=== PATIENT | female | born 1970 | race Asian ===

== ENCOUNTER 2019-05-23 12:35 | Inpatient (IN) | payer OTHER ==
[~2019-05-23] VITALS: Ht 157.5 cm; Wt 53.7 kg
[~2019-05-23 12:35] MED LIST: ASPI-1198 PO; FERR240T6 PO; INSU100C3 SQ; OLAN20TA2 PO; OMEP20 PO; PARO20TA24 PO; SIMV-260 PO; ZOLP10TA7 PO
[2019-05-23 12:54] LABS: GLUCOSE,POINT OF CARE > 600 MG/DL (70-110)
[2019-05-23] MEDS ORDERED: ROSU20TA23 PO (12:58)
[2019-05-23] MEDS ORDERED: LISI-662 PO (12:58)
[2019-05-23] MEDS ORDERED: INSLAN SQ (12:58)
[2019-05-23] MEDS ORDERED: OLAN10TA3 PO (12:58)
[2019-05-23] MEDS ORDERED: SPIR25 PO (12:58)
[2019-05-23] MEDS ORDERED: CALC30CA PO (12:58)
[2019-05-23] MEDS ORDERED: FERR-89 PO (12:58)
[2019-05-23] MEDS ORDERED: ACET-66 PO (12:58)
[2019-05-23] MEDS ORDERED: PATI8.4P PO (12:58)
[2019-05-23] MEDS ORDERED: DULA1.5P SQ (12:58)
[2019-05-23] MEDS ORDERED: MULT-1203 PO (12:58)
[2019-05-23] MEDS ORDERED: BIOT10TA2 PO (12:58)
[2019-05-23] MEDS ORDERED: METO25XL PO (12:58)
[2019-05-23] MEDS ORDERED: LANTANOPROST OU (12:58)
[2019-05-23] MEDS ORDERED: [UNRECOGNIZED DRUG - CODE] SQ (12:58)
[2019-05-23 13:24] LABS: BASOPHILS % (AUTO) 0.2 % (0.0-2.0); EOSINOPHILS % (AUTO) 0.7 % (1.0-6.0); HEMATOCRIT 29.7 % (36-46); HEMOGLOBIN 9.5 g/dL (12.0-16.0); LYMPHOCYTES # (AUTO) 0.6 K/uL (1.0-4.8); LYMPHOCYTES % (AUTO) 7.5 % (22.0-44.0); MEAN CORPUSCULAR HEMOGLOBIN 27.9 pg (26.0-34.0); MEAN CORPUSCULAR VOLUME 87 fL (80-100); MONOCYTES # (AUTO) 0.4 K/uL (0.1-1.0); MONOCYTES % (AUTO) 5.4 % (2.0-9.0); NEUTROPHILS # (AUTO) 6.8 K/uL (1.8-7.7); NEUTROPHILS % (AUTO) 86.2 % (40.0-70.0); PLATELET COUNT (AUTO) 653 K/uL (150-450); RED BLOOD CELL COUNT(AUTO) 3.41 MIL/uL (4.00-5.20); RED CELL DISTRIBUTION WIDTH 15.4 % (11.5-14.5)
[2019-05-23 13:39] LABS: ALANINE AMINOTRANSFERASE 21 U/L (12-78); ALBUMIN 2.8 g/dL (3.4-5.0); ALKALINE PHOSPHATASE 135 U/L (46-116); ANION GAP 12 mmol/L (8-16); ASPARTATE AMINOTRANSFERASE 14 U/L (15-37); BILIRUBIN,TOTAL 0.2 mg/dL (0.1-1.0); CALCIUM, TOTAL 8.8 mg/dL (8.8-10.5); CARBON DIOXIDE 19 mmol/L (22-29); CHLORIDE 86 mmol/L (98-107); CREATININE 2.84 mg/dL (0.60-1.30); GLOMERULAR FILTR. RATE CALC 18 mL/min (>60); POTASSIUM 4.1 mmol/L (3.5-5.1); TOTAL PROTEIN, SERUM 7.4 g/dL (6.4-8.2); UREA NITROGEN, BLOOD 36 mg/dL (7-18)
[2019-05-23 13:52] LABS: ACETAMINOPHEN < 2 mcg/mL (10-30); GLUCOSE,RANDOM 800 mg/dL (70-110); SODIUM SERUM 117 mmol/L (136-145)
[2019-05-23 14:01] LABS: SALICYLATE < 2.8 mg/dL (2.8-20.0)
[2019-05-23] MEDS ORDERED: SODIUM CHLORIDE 0.9% 1,000 ML IV ONE (14:30)
[2019-05-23] MEDS ORDERED: INSULIN LISPRO 100 UNITS/ML SQ ONE (14:30)
[2019-05-23] MEDS ORDERED: INSU300I SQ (14:37)
[2019-05-23 14:50] LABS: ACETONE,BLOOD TRACE (NEGATIVE)
[2019-05-23 15:22] LABS: OSMOLALITY 309 mOS/kg (270-310)
[2019-05-23 15:31] LABS: ABG A-A DIFF O2 25.4 mmHg (10-20.0); ABG BASE EXCESS -7.5 mmol/L (-2.0-3.0); ABG CARBOXYHEMOGLOBIN 0.3 % (0.0-1.5); ABG HCO3 19.1 mmol/L (22.0-26.0); ABG METHEMOGLOBIN 0.3 % (0.0-1.5); ABG OXYGEN CONTENT 12.1 mL/dL (15.0-23.0); ABG OXYGEN SATURATION 96.7 % (95.0-98.0); ABG OXYHEMOGLOBIN 96.1 % (94.0-100.0); ABG PCO2 25 mmHg (35-45); ABG PH 7.437 (7.35-7.450); ABG TOTAL HEMOGLOBIN 8.8 G/dL (12.0-18.0); O2 DEVICE,BLOOD GAS ROOM AIR (ROOM AIR); PO2, ARTERIAL BG 94.1 mmHg (88.0-96.0); SITE, BLOOD GAS RT RADIAL; SOURCE, BLOOD GAS ARTERIAL; TEMPERATURE, FAHRENHEIT, BG 98.5 FAHREN (96.0-98.6)
[2019-05-23 15:55] LABS: GLUCOSE,POINT OF CARE 575 MG/DL (70-110)
[2019-05-23] MEDS ORDERED: ACETAMINOPHEN 325 MG TABLET PO PRN (16:00)
[2019-05-23] MEDS ORDERED: 0.9% SODIUM CHLORIDE 10 ML SYRINGE IVP PRN (16:00)
[2019-05-23] MEDS ORDERED: ONDANSETRON HCL 4 MG/2 ML VIAL IVP PRN ×2 (16:00→22:45)
[2019-05-23 16:31] LABS: AMPHET/METH SCREEN,URINE NEGATIVE (NEGATIVE); BARBITURATE SCREEN, URINE NEGATIVE (NEGATIVE); BENZODIAZEPINES SCREEN,URINE NEGATIVE (NEGATIVE); CANNABINOID SCREEN,URINE NEGATIVE (NEGATIVE); COCAINE SCREEN,URINE NEGATIVE (NEGATIVE); METHADONE SCREEN, URINE NEGATIVE (NEGATIVE); OPIATE SCREEN,URINE NEGATIVE (NEGATIVE)
[2019-05-23 16:32] LABS: PHENCYCLIDINE SCREEN,URINE NEGATIVE (NEGATIVE)
[2019-05-23 18:51] LABS: GLUCOSE,POINT OF CARE 241 MG/DL (70-110)
[2019-05-23 20:30] VITALS: BP 115/78
[2019-05-23] MEDS ORDERED: DEXTROSE 50%-WATER 25 GM/50 ML SYRINGE IVP PRN (21:15)
[2019-05-23] MEDS: PARoxetine HCL 20 MG TABLET PO SCH (21:53)
[2019-05-23] MEDS: LATANOPROST 0.005% 2.5 ML OPHTHALMIC SOLUTION OU SCH (21:54)
[2019-05-23] MEDS: INSULIN GLARGINE,HUM.REC.ANLOG 100 UNITS/ML SQ SCH (21:54)
[2019-05-23] MEDS: OLANZapine 10 MG TABLET PO SCH (21:54)
[2019-05-23] MEDS: INSULIN LISPRO 100 UNITS/ML SQ PRN (21:55)
[2019-05-23] MEDS ORDERED: BISACODYL 10 MG RECTAL RECTAL SUPPOSITORY PR PRN (22:45)
[2019-05-23] MEDS ORDERED: ALBUTEROL SULFATE 2.5 MG/0.5 ML NEB SOLUTION NEB PRN (22:45)
[2019-05-23] MEDS ORDERED: HYDROCODONE/ACETAMINOPHEN 5-325 MG TABLET PO PRN (22:45)
[2019-05-23] MEDS ORDERED: IPRATROPIUM BROMIDE 0.5 MG/2.5 ML NEB SOLUTION NEB PRN (22:45)
[2019-05-23] MEDS ORDERED: MAGNESIUM HYDROXIDE SUSPENSION 30 ML UDCUP PO PRN (22:45)
[2019-05-23] MEDS ORDERED: MORPHINE SULFATE 2 MG/ML SYRINGE IVP PRN (22:45)
[2019-05-23] MEDS: HEPARIN SODIUM,PORCINE 5,000 UNITS/ML VIAL SQ SCH (23:21)
[2019-05-23 23:28] VITALS: BP 132/88
[2019-05-23 23:40] LABS: GLUCOMETER DEV NAME(LOC) 6N.2; GLUCOSE,POINT OF CARE 203 MG/DL (70-110)
[2019-05-23] MEDS ORDERED: INFLUENZA VIRUS VACCINE QVS 2019-20 (3YR+)/PF 60 MCG/0.5 ML SYRINGE IM ONE (23:45)
[2019-05-23] MEDS: ACETAMINOPHEN 325 MG TABLET PO PRN (23:55)
[2019-05-24] MEDS: ZOLPIDEM TARTRATE 5 MG TABLET PO PRN ×2 (02:20→23:30)
[2019-05-24 05:02] VITALS: BP 149/94
[2019-05-24 06:21] LABS: GLUCOMETER DEV NAME(LOC) 4E.2; GLUCOSE,POINT OF CARE 331 MG/DL (70-110)
[2019-05-24] MEDS ORDERED: INSULIN LISPRO 100 UNITS/ML SQ SCH (06:30)
[2019-05-24 07:55] VITALS: BP 133/87
[2019-05-24] MEDS: METOPROLOL SUCCINATE 25 MG ER TABLET PO SCH (08:02)
[2019-05-24] MEDS: MULTIVITAMINS, THERAPEUTIC TABLET PO SCH (08:02)
[2019-05-24] MEDS: ROSUVASTATIN CALCIUM 20 MG TABLET PO SCH (08:02)
[2019-05-24] MEDS: BIOTIN 5 MG CAPSULE PO SCH (08:02)
[2019-05-24] MEDS: DOCUSATE SODIUM 100 MG CAPSULE PO SCH ×2 (08:02→20:09)
[2019-05-24] MEDS: HEPARIN SODIUM,PORCINE 5,000 UNITS/ML VIAL SQ SCH ×3 (08:03→23:25)
[2019-05-24] MEDS: FERROUS SULFATE 325 MG EC TABLET PO SCH (08:19)
[2019-05-24] MEDS ORDERED: OLANZapine 10 MG TABLET PO SCH (09:00)
[2019-05-24] MEDS ORDERED: CALCIFEDIOL 30 MCG PO SCH (09:00)
[2019-05-24] MEDS ORDERED: LISINOPRIL 20 MG TABLET PO SCH (09:00)
[2019-05-24] MEDS ORDERED: PATIROMER CALCIUM SORBITEX 8.4 GM PO SCH (09:00)
[2019-05-24] MEDS ORDERED: PARoxetine HCL 20 MG TABLET PO SCH (09:00)
[2019-05-24] MEDS ORDERED: SPIRONOLACTONE 25 MG TABLET PO SCH (09:00)
[2019-05-24 10:12] LABS: EOSINOPHILS % (AUTO) 1.1 % (1.0-6.0); HEMATOCRIT 25.9 % (36-46); LYMPHOCYTES # (AUTO) 0.6 K/uL (1.0-4.8); LYMPHOCYTES % (AUTO) 6.9 % (22.0-44.0); MEAN CORPUSCULAR HEMOGLOBIN 29.3 pg (26.0-34.0); MEAN CORPUSCULAR HGB CONC 34.8 G/dL (31.0-37.0); MEAN CORPUSCULAR VOLUME 84 fL (80-100); MONOCYTES # (AUTO) 0.4 K/uL (0.1-1.0); MONOCYTES % (AUTO) 5.4 % (2.0-9.0); NEUTROPHILS # (AUTO) 6.9 K/uL (1.8-7.7); NEUTROPHILS % (AUTO) 86.6 % (40.0-70.0); PLATELET COUNT (AUTO) 559 K/uL (150-450); RED BLOOD CELL COUNT(AUTO) 3.08 MIL/uL (4.00-5.20); RED CELL DISTRIBUTION WIDTH 16.1 % (11.5-14.5)
[2019-05-24 10:22] LABS: POTASSIUM 3.6 mmol/L (3.5-5.1)
[2019-05-24 10:23] LABS: CREATININE 2.11 mg/dL (0.60-1.30)
[2019-05-24 10:28] LABS: ALBUMIN 2.4 g/dL (3.4-5.0); BILIRUBIN,TOTAL 0.1 mg/dL (0.1-1.0); TOTAL PROTEIN, SERUM 6.3 g/dL (6.4-8.2)
[2019-05-24 11:34] VITALS: BP 100/62
[2019-05-24] MEDS ORDERED: DEXTROSE 5%-WATER 1,000 ML IV SCH (11:45)
[2019-05-24] MEDS ORDERED: INSU100V SQ (11:54)
[2019-05-24] MEDS ORDERED: XALA2.5OS OU (11:54)
[2019-05-24] MEDS: INSULIN LISPRO 100 UNITS/ML SQ SCH ×2 (12:44→17:00)
[2019-05-24 12:51] LABS: GLUCOMETER DEV NAME(LOC) 4E.2; GLUCOSE,POINT OF CARE 105 MG/DL (70-110)
[2019-05-24 15:18] LABS: APPEARANCE,URINE TURBID (CLEAR); BILIRUBIN,URINE NEGATIVE (NEGATIVE); GLUCOSE, URINE (UA) 500 mg/dL (NEGATIVE); KETONES,URINE NEGATIVE (NEGATIVE); LEUKOCYTE ESTERASE ,URINE MODERATE (NEGATIVE); NITRATE,URINE NEGATIVE (NEGATIVE); OCCULT BLOOD,URINE MODERATE (NEGATIVE); PROTEIN,URINE SEE CONFIRM (NEGATIVE); UROBILINOGEN,URINE 0.2 mg/dL (<=1.0)
[2019-05-24 15:38] VITALS: BP 99/68
[2019-05-24 15:38] LABS: BACTERIA,URINE Many /HPF (None Seen); SULFOSALICYLIC ACID,URINE 4+ (Negative)
[2019-05-24 15:39] LABS: WBC,URINE 51-100 /HPF (0-5)
[2019-05-24 15:40] LABS: SQUAMOUS EPITHELIAL CELL,UR Many /LPF (None Seen)
[2019-05-24 15:41] LABS: YEAST,URINE Rare /HPF (None Seen)
[2019-05-24 15:59] LABS: OSMOLALITY,URINE 182 mOS/kg (50-1200)
[2019-05-24 16:06] LABS: CREATININE,URINE RANDOM 34.3 mg/dL (30.0-125.0); SODIUM,URINE RANDOM 16 mmol/l (20-110); UREA NITROGEN,URINE RANDOM 193 mg/dL (350-1000)
[2019-05-24 19:09] LABS: GLUCOMETER DEV NAME(LOC) 6N.2; GLUCOSE,POINT OF CARE 106 MG/DL (70-110)
[2019-05-24 19:09] LABS: GLUCOMETER DEV NAME(LOC) 6N.2; GLUCOSE,POINT OF CARE 217 MG/DL (70-110)
[2019-05-24 20:00] VITALS: BP 115/73
[2019-05-24] MEDS: LATANOPROST 0.005% 2.5 ML OPHTHALMIC SOLUTION OU SCH (20:09)
[2019-05-24] MEDS: OLANZapine 10 MG TABLET PO SCH (20:09)
[2019-05-24] MEDS: PARoxetine HCL 20 MG TABLET PO SCH (20:09)
[2019-05-24] MEDS: INSULIN LISPRO 100 UNITS/ML SQ PRN (20:43)
[2019-05-24] MEDS: INSULIN GLARGINE,HUM.REC.ANLOG 100 UNITS/ML SQ SCH (20:44)
[2019-05-24 21:24] LABS: GLUCOMETER DEV NAME(LOC) 4E.2; GLUCOSE,POINT OF CARE 310 MG/DL (70-110)
[2019-05-24 22:22] LABS: APPEARANCE,URINE CLOUDY (CLEAR); BILIRUBIN,URINE NEGATIVE (NEGATIVE); GLUCOSE, URINE (UA) 250 mg/dL (NEGATIVE); KETONES,URINE NEGATIVE (NEGATIVE); LEUKOCYTE ESTERASE ,URINE MODERATE (NEGATIVE); NITRATE,URINE NEGATIVE (NEGATIVE); OCCULT BLOOD,URINE MODERATE (NEGATIVE); PROTEIN,URINE SEE CONFIRM (NEGATIVE); UROBILINOGEN,URINE 0.2 mg/dL (<=1.0)
[2019-05-24 22:44] LABS: BACTERIA,URINE Many /HPF (None Seen); RBC,URINE 0-2 /HPF (0-2)
[2019-05-24 22:45] LABS: SQUAMOUS EPITHELIAL CELL,UR Many /LPF (None Seen); WBC,URINE 51-100 /HPF (0-5); YEAST,URINE Rare /HPF (None Seen)
[2019-05-25 00:43] VITALS: BP 149/94
[2019-05-25 04:30] VITALS: BP 134/82
[2019-05-25 05:45] LABS: BASOPHILS % (AUTO) 0.3 % (0.0-2.0); HEMOGLOBIN 8.2 g/dL (12.0-16.0); LYMPHOCYTES # (AUTO) 0.8 K/uL (1.0-4.8); LYMPHOCYTES % (AUTO) 11.7 % (22.0-44.0); MEAN CORPUSCULAR HEMOGLOBIN 28.9 pg (26.0-34.0); MEAN CORPUSCULAR VOLUME 85 fL (80-100); MONOCYTES # (AUTO) 0.5 K/uL (0.1-1.0); MONOCYTES % (AUTO) 7.1 % (2.0-9.0); NEUTROPHILS # (AUTO) 5.4 K/uL (1.8-7.7); NEUTROPHILS % (AUTO) 78.9 % (40.0-70.0); PLATELET COUNT (AUTO) 470 K/uL (150-450); RED BLOOD CELL COUNT(AUTO) 2.83 MIL/uL (4.00-5.20); RED CELL DISTRIBUTION WIDTH 16.5 % (11.5-14.5)
[2019-05-25] MEDS: INSULIN LISPRO 100 UNITS/ML SQ SCH ×3 (06:27→17:42)
[2019-05-25 06:30] LABS: GLUCOMETER DEV NAME(LOC) 6N.2; GLUCOSE,POINT OF CARE 149 MG/DL (70-110)
[2019-05-25 06:33] LABS: BILIRUBIN,TOTAL 0.1 mg/dL (0.1-1.0); CALCIUM, TOTAL 8.2 mg/dL (8.8-10.5); MAGNESIUM 2.1 mg/dL (1.80-2.40); PHOSPHORUS 3.6 mg/dL (2.5-4.9); POTASSIUM 3.2 mmol/L (3.5-5.1); TOTAL PROTEIN, SERUM 5.6 g/dL (6.4-8.2)
[2019-05-25 06:35] LABS: HEMOGLOBIN A1C 11.5 % (4.5-6.2)
[2019-05-25] MEDS ORDERED: SODIUM CHLORIDE 0.9% 1,000 ML IV SCH (08:16)
[2019-05-25] MEDS: HEPARIN SODIUM,PORCINE 5,000 UNITS/ML VIAL SQ SCH ×2 (08:26→16:24)
[2019-05-25] MEDS: ROSUVASTATIN CALCIUM 20 MG TABLET PO SCH (08:26)
[2019-05-25] MEDS: DOCUSATE SODIUM 100 MG CAPSULE PO SCH ×2 (08:26→20:09)
[2019-05-25] MEDS: BIOTIN 5 MG CAPSULE PO SCH (08:26)
[2019-05-25] MEDS: MULTIVITAMINS, THERAPEUTIC TABLET PO SCH (08:27)
[2019-05-25] MEDS: FERROUS SULFATE 325 MG EC TABLET PO SCH (08:27)
[2019-05-25] MEDS ORDERED: POTASSIUM CHLORIDE 10 MEQ ER TABLET PO ONE (08:30)
[2019-05-25] MEDS: METOPROLOL SUCCINATE 25 MG ER TABLET PO SCH (09:00)
[2019-05-25 09:43] VITALS: BP 104/75
[2019-05-25] MEDS: INSULIN LISPRO 100 UNITS/ML SQ PRN (11:52)
[2019-05-25 12:21] VITALS: BP 101/64
[2019-05-25 16:30] VITALS: BP 118/75
[2019-05-25 17:47] LABS: GLUCOMETER DEV NAME(LOC) 4E.2; GLUCOSE,POINT OF CARE 120 MG/DL (70-110)
[2019-05-25] MEDS: LATANOPROST 0.005% 2.5 ML OPHTHALMIC SOLUTION OU SCH (20:07)
[2019-05-25] MEDS: PARoxetine HCL 20 MG TABLET PO SCH (20:09)
[2019-05-25] MEDS: OLANZapine 10 MG TABLET PO SCH (20:10)
[2019-05-25] MEDS: INSULIN GLARGINE,HUM.REC.ANLOG 100 UNITS/ML SQ SCH (20:16)
[2019-05-25 20:34] VITALS: BP 121/75
[2019-05-25 21:18] LABS: GLUCOMETER DEV NAME(LOC) 6N.2; GLUCOSE,POINT OF CARE 99 MG/DL (70-110)
[2019-05-26] MEDS: HEPARIN SODIUM,PORCINE 5,000 UNITS/ML VIAL SQ SCH ×3 (02:17→15:16)
[2019-05-26] MEDS: ACETAMINOPHEN 325 MG TABLET PO PRN (03:13)
[2019-05-26] MEDS: ZOLPIDEM TARTRATE 5 MG TABLET PO PRN ×2 (03:25→20:41)
[2019-05-26 04:00] VITALS: BP 123/77
[2019-05-26] MEDS: INSULIN LISPRO 100 UNITS/ML SQ PRN ×2 (06:27→17:48)
[2019-05-26 06:36] LABS: BASOPHILS % (AUTO) 0.2 % (0.0-2.0); EOSINOPHILS % (AUTO) 1.1 % (1.0-6.0); HEMATOCRIT 25.3 % (36-46); HEMOGLOBIN 8.4 g/dL (12.0-16.0); LYMPHOCYTES # (AUTO) 0.6 K/uL (1.0-4.8); LYMPHOCYTES % (AUTO) 9.3 % (22.0-44.0); MEAN CORPUSCULAR HEMOGLOBIN 28.4 pg (26.0-34.0); MEAN CORPUSCULAR VOLUME 86 fL (80-100); MONOCYTES # (AUTO) 0.4 K/uL (0.1-1.0); MONOCYTES % (AUTO) 6.6 % (2.0-9.0); NEUTROPHILS # (AUTO) 5.6 K/uL (1.8-7.7); NEUTROPHILS % (AUTO) 82.8 % (40.0-70.0); PLATELET COUNT (AUTO) 417 K/uL (150-450); RED BLOOD CELL COUNT(AUTO) 2.95 MIL/uL (4.00-5.20); RED CELL DISTRIBUTION WIDTH 16.3 % (11.5-14.5)
[2019-05-26 06:57] LABS: ALBUMIN 2.1 g/dL (3.4-5.0); BILIRUBIN,TOTAL 0.1 mg/dL (0.1-1.0); CREATININE 1.95 mg/dL (0.60-1.30); MAGNESIUM 1.9 mg/dL (1.80-2.40); TOTAL PROTEIN, SERUM 5.6 g/dL (6.4-8.2)
[2019-05-26 08:00] VITALS: BP 104/69
[2019-05-26] MEDS: INSULIN LISPRO 100 UNITS/ML SQ SCH ×3 (08:52→17:47)
[2019-05-26] MEDS: BIOTIN 5 MG CAPSULE PO SCH (08:55)
[2019-05-26] MEDS: SODIUM CHLORIDE 1 GM TABLET PO SCH ×3 (08:55→18:06)
[2019-05-26] MEDS: FERROUS SULFATE 325 MG EC TABLET PO SCH (08:55)
[2019-05-26] MEDS: ROSUVASTATIN CALCIUM 20 MG TABLET PO SCH (08:55)
[2019-05-26] MEDS: DOCUSATE SODIUM 100 MG CAPSULE PO SCH ×2 (08:55→20:38)
[2019-05-26] MEDS: MULTIVITAMINS, THERAPEUTIC TABLET PO SCH (08:55)
[2019-05-26] MEDS: METOPROLOL SUCCINATE 25 MG ER TABLET PO SCH (09:00)
[2019-05-26 11:40] VITALS: BP 137/80
[2019-05-26 11:47] LABS: GLUCOMETER DEV NAME(LOC) 6N.2; GLUCOSE,POINT OF CARE 55 MG/DL (70-110)
[2019-05-26 12:00] LABS: GLUCOMETER DEV NAME(LOC) 6N.2; GLUCOSE,POINT OF CARE 196 MG/DL (70-110)
[2019-05-26 16:30] VITALS: BP 127/83
[2019-05-26 17:17] LABS: GLUCOMETER DEV NAME(LOC) 4E.2; GLUCOSE,POINT OF CARE 92 MG/DL (70-110)
[2019-05-26 17:18] LABS: GLUCOMETER DEV NAME(LOC) 4E.2; GLUCOSE,POINT OF CARE 124 MG/DL (70-110)
[2019-05-26 18:03] LABS: CALCIUM, TOTAL 8.5 mg/dL (8.8-10.5); CREATININE 1.88 mg/dL (0.60-1.30); POTASSIUM 4.6 mmol/L (3.5-5.1)
[2019-05-26 20:35] VITALS: BP 122/79
[2019-05-26] MEDS: LATANOPROST 0.005% 2.5 ML OPHTHALMIC SOLUTION OU SCH (20:38)
[2019-05-26] MEDS: INSULIN GLARGINE,HUM.REC.ANLOG 100 UNITS/ML SQ SCH (20:46)
[2019-05-26] MEDS ORDERED: OLANZapine 10 MG TABLET PO SCH (21:00)
[2019-05-26] MEDS ORDERED: PARoxetine HCL 20 MG TABLET PO SCH (21:00)
[2019-05-26] MEDS ORDERED: PARoxetine HCL 10 MG TABLET PO SCH (21:00)
[2019-05-26] MEDS: LamoTRIgine 25 MG TABLET PO SCH (21:42)
[2019-05-26 23:07] LABS: GLUCOMETER DEV NAME(LOC) 6N.2; GLUCOSE,POINT OF CARE 98 MG/DL (70-110)
[2019-05-26 23:07] LABS: GLUCOMETER DEV NAME(LOC) 6N.2; GLUCOSE,POINT OF CARE 195 MG/DL (70-110)
[2019-05-27 00:16] VITALS: BP 117/70
[2019-05-27] MEDS: HEPARIN SODIUM,PORCINE 5,000 UNITS/ML VIAL SQ SCH ×2 (00:19→09:01)
[2019-05-27] MEDS: SODIUM CHLORIDE 1 GM TABLET PO SCH ×3 (00:19→12:13)
[2019-05-27 05:47] VITALS: BP 108/68
[2019-05-27] MEDS: INSULIN LISPRO 100 UNITS/ML SQ PRN (05:56)
[2019-05-27 06:32] LABS: GLUCOMETER DEV NAME(LOC) 6N.2; GLUCOSE,POINT OF CARE 149 MG/DL (70-110)
[2019-05-27 06:43] LABS: BASOPHILS % (AUTO) 0.3 % (0.0-2.0); EOSINOPHILS % (AUTO) 1.5 % (1.0-6.0); HEMATOCRIT 26.4 % (36-46); HEMOGLOBIN 8.9 g/dL (12.0-16.0); LYMPHOCYTES # (AUTO) 0.6 K/uL (1.0-4.8); LYMPHOCYTES % (AUTO) 9.3 % (22.0-44.0); MEAN CORPUSCULAR HEMOGLOBIN 29.1 pg (26.0-34.0); MEAN CORPUSCULAR HGB CONC 33.5 G/dL (31.0-37.0); MEAN CORPUSCULAR VOLUME 87 fL (80-100); MONOCYTES # (AUTO) 0.6 K/uL (0.1-1.0); MONOCYTES % (AUTO) 10.2 % (2.0-9.0); NEUTROPHILS # (AUTO) 4.7 K/uL (1.8-7.7); NEUTROPHILS % (AUTO) 78.7 % (40.0-70.0); PLATELET COUNT (AUTO) 455 K/uL (150-450); RED BLOOD CELL COUNT(AUTO) 3.05 MIL/uL (4.00-5.20); RED CELL DISTRIBUTION WIDTH 16.7 % (11.5-14.5)
[2019-05-27 07:07] LABS: ALBUMIN 2.4 g/dL (3.4-5.0); BILIRUBIN,TOTAL 0.2 mg/dL (0.1-1.0); CALCIUM, TOTAL 8.8 mg/dL (8.8-10.5); CREATININE 2.05 mg/dL (0.60-1.30); PHOSPHORUS 3.6 mg/dL (2.5-4.9); POTASSIUM 4.6 mmol/L (3.5-5.1); TOTAL PROTEIN, SERUM 6.2 g/dL (6.4-8.2)
[2019-05-27 08:20] VITALS: BP 135/59
[2019-05-27] MEDS: METOPROLOL SUCCINATE 25 MG ER TABLET PO SCH (09:00)
[2019-05-27] MEDS: BIOTIN 5 MG CAPSULE PO SCH (09:00)
[2019-05-27] MEDS: DOCUSATE SODIUM 100 MG CAPSULE PO SCH (09:01)
[2019-05-27] MEDS: LamoTRIgine 25 MG TABLET PO SCH (09:01)
[2019-05-27] MEDS: MULTIVITAMINS, THERAPEUTIC TABLET PO SCH (09:01)
[2019-05-27] MEDS: ROSUVASTATIN CALCIUM 20 MG TABLET PO SCH (09:01)
[2019-05-27] MEDS: FERROUS SULFATE 325 MG EC TABLET PO SCH (09:01)
[2019-05-27] MEDS: INSULIN LISPRO 100 UNITS/ML SQ SCH ×2 (09:02→11:30)
[2019-05-27 11:16] VITALS: BP 100/60
[2019-05-27] MEDS ORDERED: LAMO25TA25 PO (11:28)
[2019-05-27] MEDS ORDERED: NACL1 PO (11:29)
[2019-05-27 18:44] LABS: GLUCOMETER DEV NAME(LOC) 4E.2; GLUCOSE,POINT OF CARE 89 MG/DL (70-110)
[2019-05-27] MEDS ORDERED: PARoxetine HCL 10 MG TABLET PO SCH (21:00)
== END 2019-05-27 13:30 | disposition home or self-care (01) | DRG 469 ==
LOC: EMS 12:36 → 4E 17:15
PROVIDERS: ADMIT Hospitalist; ATTEND Hospitalist
DX: N17.9 Acute kidney failure, unspecified (principal); E43 Unspecified severe protein-calorie malnutrition; E10.22 Type 1 diabetes mellitus with diabetic chronic kidney disease; E10.40 Type 1 diabetes mellitus with diabetic neuropathy, unspecified; E86.1 Hypovolemia; E87.1 Hypo-osmolality and hyponatremia; E10.319 Type 1 diabetes mellitus with unspecified diabetic retinopathy without macular edema; I50.9 Heart failure, unspecified; E10.65 Type 1 diabetes mellitus with hyperglycemia; R45.851 Suicidal ideations; E78.5 Hyperlipidemia, unspecified; N30.90 Cystitis, unspecified without hematuria; E87.6 Hypokalemia; D64.9 Anemia, unspecified; I13.0 Hypertensive heart and chronic kidney disease with heart failure and stage 1 through stage 4 chronic kidney disease, or unspecified chronic kidney disease; F31.5 Bipolar disorder, current episode depressed, severe, with psychotic features; N18.9 Chronic kidney disease, unspecified; E87.8 Other disorders of electrolyte and fluid balance, not elsewhere classified; Z79.4 Long term (current) use of insulin; Z79.899 Other long term (current) drug therapy; Z91.14 Patient's other noncompliance with medication regimen; Z91.5 Personal history of self-harm; Z68.21 Body mass index [BMI] 21.0-21.9, adult
CPT/HCPCS: 36600; 76770; 82533; 82570; 82805; 83036; 83735; 83930; 83935; 84100; 84295; 84300; 84540; 87086; 99291; G0378; G0480; G0481; J1644; J1815; J7030; J7060

== ENCOUNTER 2019-07-02 15:46 | Inpatient (IN) | payer OTHER ==
[~2019-07-02] VITALS: Ht 165.1 cm; Wt 53.4 kg
[~2019-07-02 15:46] MED LIST changes: -ASPI-1198 PO; +BIOT10TA2 PO; +FERR-89 PO; -FERR240T6 PO; -INSU100C3 SQ; +INSU100V SQ; +INSU300I SQ; +LAMO25TA25 PO; +METO25XL PO; +MULT-1203 PO; +NACL1 PO; +OLAN10TA3 PO; -OLAN20TA2 PO; -OMEP20 PO; +ROSU20TA23 PO; -SIMV-260 PO; +XALA2.5OS OU; -ZOLP10TA7 PO
[2019-07-02 16:29] LABS: GLUCOSE,POINT OF CARE > 600 MG/DL (70-110)
[2019-07-02] MEDS ORDERED: SODIUM CHLORIDE 0.9% 2,000 ML IV ONE (17:15)
[2019-07-02] MEDS ORDERED: INSULIN REGULAR, HUMAN 100 UNITS/ML IVP ONE ×2 (17:15→20:15)
[2019-07-02 17:33] LABS: BASOPHILS % (AUTO) 0.3 % (0.0-2.0); EOSINOPHILS % (AUTO) 0.3 % (1.0-6.0); HEMOGLOBIN 10.1 g/dL (12.0-16.0); LYMPHOCYTES # (AUTO) 0.3 K/uL (1.0-4.8); LYMPHOCYTES % (AUTO) 2.6 % (22.0-44.0); MEAN CORPUSCULAR HEMOGLOBIN 26.4 pg (26.0-34.0); MEAN CORPUSCULAR HGB CONC 30.5 G/dL (31.0-37.0); MEAN CORPUSCULAR VOLUME 86 fL (80-100); MONOCYTES # (AUTO) 0.4 K/uL (0.1-1.0); MONOCYTES % (AUTO) 3.5 % (2.0-9.0); NEUTROPHILS # (AUTO) 11.7 K/uL (1.8-7.7); PLATELET COUNT (AUTO) 508 K/uL (150-450); RED BLOOD CELL COUNT(AUTO) 3.82 MIL/uL (4.00-5.20); RED CELL DISTRIBUTION WIDTH 14.3 % (11.5-14.5)
[2019-07-02 17:35] LABS: NEUTROPHILS % (AUTO) 93.3 % (40.0-70.0)
[2019-07-02 17:53] LABS: ALANINE AMINOTRANSFERASE 19 U/L (12-78); ALBUMIN 1.6 g/dL (3.4-5.0); ALKALINE PHOSPHATASE 202 U/L (46-116); ANION GAP 11 mmol/L (8-16); ASPARTATE AMINOTRANSFERASE 19 U/L (15-37); CALCIUM, TOTAL 8.8 mg/dL (8.8-10.5); CARBON DIOXIDE 22 mmol/L (22-29); CHLORIDE 82 mmol/L (98-107); CREATININE 2.87 mg/dL (0.60-1.30); GLOMERULAR FILTR. RATE CALC 17 mL/min (>60); HCG,QUANTITATIVE < 1 mIU/mL (0-6); POTASSIUM 4.8 mmol/L (3.5-5.1); TOTAL PROTEIN, SERUM 7.2 g/dL (6.4-8.2); UREA NITROGEN, BLOOD 27 mg/dL (7-18)
[2019-07-02 18:02] LABS: SODIUM SERUM 115 mmol/L (136-145)
[2019-07-02 18:11] LABS: GLUCOSE,RANDOM 1066 mg/dL (70-110)
[2019-07-02 18:15] LABS: BILIRUBIN,TOTAL 0.1 mg/dL (0.1-1.0)
[2019-07-02] MEDS ORDERED: ACETAMINOPHEN 325 MG TABLET PO PRN ×2 (19:00→22:30)
[2019-07-02] MEDS ORDERED: 0.9% SODIUM CHLORIDE 10 ML SYRINGE IVP PRN (19:00)
[2019-07-02] MEDS ORDERED: ONDANSETRON HCL 4 MG/2 ML VIAL IVP PRN ×2 (19:00→22:30)
[2019-07-02 19:01] LABS: GLUCOSE,POINT OF CARE 530 MG/DL (70-110)
[2019-07-02 19:49] LABS: APPEARANCE,URINE TURBID (CLEAR); BILIRUBIN,URINE NEGATIVE (NEGATIVE); GLUCOSE, URINE (UA) >=1000 mg/dL (NEGATIVE); KETONES,URINE NEGATIVE (NEGATIVE); LEUKOCYTE ESTERASE ,URINE MODERATE (NEGATIVE); NITRATE,URINE NEGATIVE (NEGATIVE); OCCULT BLOOD,URINE MODERATE (NEGATIVE); PH,URINE 5.5 (5.0-8.0); PROTEIN,URINE SEE CONFIRM (NEGATIVE); UROBILINOGEN,URINE 0.2 mg/dL (<=1.0)
[2019-07-02 19:55] LABS: AMPHET/METH SCREEN,URINE NEGATIVE (NEGATIVE); BARBITURATE SCREEN, URINE NEGATIVE (NEGATIVE); BENZODIAZEPINES SCREEN,URINE NEGATIVE (NEGATIVE); CANNABINOID SCREEN,URINE NEGATIVE (NEGATIVE); COCAINE SCREEN,URINE NEGATIVE (NEGATIVE); METHADONE SCREEN, URINE NEGATIVE (NEGATIVE); OPIATE SCREEN,URINE NEGATIVE (NEGATIVE); PHENCYCLIDINE SCREEN,URINE NEGATIVE (NEGATIVE)
[2019-07-02 19:57] LABS: GLUCOSE,POINT OF CARE 418 MG/DL (70-110)
[2019-07-02 19:58] LABS: SULFOSALICYLIC ACID,URINE 4+ (Negative)
[2019-07-02 20:00] LABS: BACTERIA,URINE Many /HPF (None Seen); WBC,URINE >100 /HPF (0-5)
[2019-07-02 20:01] LABS: SQUAMOUS EPITHELIAL CELL,UR Moderate /LPF (None Seen)
[2019-07-02 22:23] LABS: GLUCOSE,POINT OF CARE 281 MG/DL (70-110)
[2019-07-02] MEDS ORDERED: MAGNESIUM HYDROXIDE SUSPENSION 30 ML UDCUP PO PRN (22:30)
[2019-07-02] MEDS ORDERED: ZOLPIDEM TARTRATE 5 MG TABLET PO PRN (22:30)
[2019-07-02] MEDS ORDERED: HYDROCODONE/ACETAMINOPHEN 5-325 MG TABLET PO PRN (22:30)
[2019-07-02] MEDS ORDERED: DEXTROSE 50%-WATER 25 GM/50 ML SYRINGE IVP PRN (22:30)
[2019-07-02] MEDS ORDERED: IPRATROPIUM BROMIDE 0.5 MG/2.5 ML NEB SOLUTION NEB PRN (22:30)
[2019-07-02] MEDS ORDERED: MORPHINE SULFATE 2 MG/ML SYRINGE IVP PRN (22:30)
[2019-07-02] MEDS ORDERED: SODIUM CHLORIDE 0.9% 1,650 ML IV ONE (22:30)
[2019-07-02] MEDS ORDERED: BISACODYL 10 MG RECTAL RECTAL SUPPOSITORY PR PRN (22:30)
[2019-07-02] MEDS ORDERED: ALBUTEROL SULFATE 2.5 MG/0.5 ML NEB SOLUTION NEB PRN (22:30)
[2019-07-02] MEDS: CefTRIAXone 1 GM/DEXTROSE 50 ML IV SCH (23:33)
[2019-07-02] MEDS: SODIUM CHLORIDE 0.9% 1,000 ML IV SCH (23:33)
[2019-07-02 23:54] LABS: CALCIUM, TOTAL 8.3 mg/dL (8.8-10.5); CREATININE 2.16 mg/dL (0.60-1.30); POTASSIUM 3.6 mmol/L (3.5-5.1)
[2019-07-03] LABS: ALBUMIN 1.4 g/dL (3.4-5.0); BILIRUBIN,TOTAL 0.1 mg/dL (0.1-1.0); MAGNESIUM 1.5 mg/dL (1.80-2.40); PHOSPHORUS 3.2 mg/dL (2.5-4.9); TOTAL PROTEIN, SERUM 5.9 g/dL (6.4-8.2)
[2019-07-03 06:25] LABS: GLUCOSE,POINT OF CARE 375 MG/DL (70-110)
[2019-07-03 07:41] LABS: GLUCOSE,POINT OF CARE 261 MG/DL (70-110)
[2019-07-03 08:23] VITALS: BP 131/89
[2019-07-03] MEDS ORDERED: MULTIVITAMINS, THERAPEUTIC TABLET PO SCH (09:00)
[2019-07-03] MEDS: MULTIVITAMINS, THERAPEUTIC TABLET PO SCH (09:17)
[2019-07-03] MEDS: DOCUSATE SODIUM 100 MG CAPSULE PO SCH ×2 (09:17→21:00)
[2019-07-03] MEDS: FERROUS SULFATE 325 MG EC TABLET PO SCH (09:17)
[2019-07-03] MEDS: METOPROLOL SUCCINATE 25 MG ER TABLET PO SCH (09:18)
[2019-07-03] MEDS: PARoxetine HCL 20 MG TABLET PO SCH (09:18)
[2019-07-03] MEDS: LATANOPROST 0.005% 2.5 ML OPHTHALMIC SOLUTION OU SCH (09:18)
[2019-07-03] MEDS: ROSUVASTATIN CALCIUM 20 MG TABLET PO SCH (09:18)
[2019-07-03] MEDS: HEPARIN SODIUM,PORCINE 5,000 UNITS/ML VIAL SQ SCH ×4 (09:19→23:41)
[2019-07-03] MEDS ORDERED: MAGNESIUM SULFATE 2 GM/WATER 50 ML IV ONE (12:00)
[2019-07-03] MEDS ORDERED: PNEUMOCOCCAL VACCINE POLYVALENT 0.5 ML VIAL [PPSV23] IM ONE (12:15)
[2019-07-03] MEDS: SODIUM CHLORIDE 0.9% 1,000 ML IV SCH ×2 (12:18→23:42)
[2019-07-03] MEDS: INSULIN LISPRO 100 UNITS/ML SQ PRN ×3 (12:19→21:05)
[2019-07-03 15:14] VITALS: BP 147/91
[2019-07-03 20:07] LABS: GLUCOMETER DEV NAME(LOC) 6N.2; GLUCOSE,POINT OF CARE 332 MG/DL (70-110)
[2019-07-03 20:07] LABS: GLUCOMETER DEV NAME(LOC) 6N.2; GLUCOSE,POINT OF CARE 223 MG/DL (70-110)
[2019-07-03 20:25] VITALS: BP 149/90
[2019-07-03] MEDS: INSULIN GLARGINE,HUM.REC.ANLOG 100 UNITS/ML SQ SCH (21:04)
[2019-07-03] MEDS: CefTRIAXone 1 GM/DEXTROSE 50 ML IV SCH (23:31)
[2019-07-04 02:15] LABS: GLUCOMETER DEV NAME(LOC) 6N.1; GLUCOSE,POINT OF CARE 155 MG/DL (70-110)
[2019-07-04] MEDS: SODIUM CHLORIDE 0.9% 1,000 ML IV SCH (05:35)
[2019-07-04] MEDS: INSULIN LISPRO 100 UNITS/ML SQ PRN ×3 (05:58→20:29)
[2019-07-04 08:00] VITALS: BP 97/40
[2019-07-04 08:04] LABS: BASOPHILS % (AUTO) 0.6 % (0.0-2.0); EOSINOPHILS % (AUTO) 1.9 % (1.0-6.0); HEMATOCRIT 26.9 % (36-46); HEMOGLOBIN 8.8 g/dL (12.0-16.0); LYMPHOCYTES # (AUTO) 0.7 K/uL (1.0-4.8); LYMPHOCYTES % (AUTO) 8.7 % (22.0-44.0); MEAN CORPUSCULAR HEMOGLOBIN 26.6 pg (26.0-34.0); MEAN CORPUSCULAR HGB CONC 32.7 G/dL (31.0-37.0); MEAN CORPUSCULAR VOLUME 81 fL (80-100); MONOCYTES # (AUTO) 0.5 K/uL (0.1-1.0); MONOCYTES % (AUTO) 5.7 % (2.0-9.0); NEUTROPHILS # (AUTO) 6.9 K/uL (1.8-7.7); NEUTROPHILS % (AUTO) 83.1 % (40.0-70.0); PLATELET COUNT (AUTO) 448 K/uL (150-450); RED CELL DISTRIBUTION WIDTH 14.4 % (11.5-14.5)
[2019-07-04 08:16] LABS: ALANINE AMINOTRANSFERASE 20 U/L (12-78); ALBUMIN 1.2 g/dL (3.4-5.0); ALKALINE PHOSPHATASE 168 U/L (46-116); ANION GAP 8 mmol/L (8-16); ASPARTATE AMINOTRANSFERASE 24 U/L (15-37); CALCIUM, TOTAL 8.5 mg/dL (8.8-10.5); CARBON DIOXIDE 23 mmol/L (22-29); CHLORIDE 108 mmol/L (98-107); CREATININE 1.75 mg/dL (0.60-1.30); GLOMERULAR FILTR. RATE CALC 31 mL/min (>60); GLUCOSE,RANDOM 94 mg/dL (70-110); POTASSIUM 3.9 mmol/L (3.5-5.1); SODIUM SERUM 139 mmol/L (136-145); TOTAL PROTEIN, SERUM 5.7 g/dL (6.4-8.2); UREA NITROGEN, BLOOD 17 mg/dL (7-18)
[2019-07-04 08:17] LABS: BILIRUBIN,TOTAL < 0.1 mg/dL (0.1-1.0)
[2019-07-04] MEDS: FERROUS SULFATE 325 MG EC TABLET PO SCH (09:40)
[2019-07-04] MEDS: PARoxetine HCL 20 MG TABLET PO SCH (09:40)
[2019-07-04] MEDS: DOCUSATE SODIUM 100 MG CAPSULE PO SCH ×2 (09:40→19:42)
[2019-07-04] MEDS: HEPARIN SODIUM,PORCINE 5,000 UNITS/ML VIAL SQ SCH ×3 (09:40→21:42)
[2019-07-04] MEDS: ROSUVASTATIN CALCIUM 20 MG TABLET PO SCH (09:40)
[2019-07-04] MEDS: METOPROLOL SUCCINATE 25 MG ER TABLET PO SCH (09:41)
[2019-07-04] MEDS: MULTIVITAMINS, THERAPEUTIC TABLET PO SCH (09:41)
[2019-07-04] MEDS: LATANOPROST 0.005% 2.5 ML OPHTHALMIC SOLUTION OU SCH (09:41)
[2019-07-04 12:10] LABS: GLUCOMETER DEV NAME(LOC) 6N.2; GLUCOSE,POINT OF CARE 132 MG/DL (70-110)
[2019-07-04 12:25] VITALS: BP 157/98
[2019-07-04 15:54] VITALS: BP 178/100
[2019-07-04 16:00] VITALS: BP 179/101
[2019-07-04 17:50] LABS: GLUCOMETER DEV NAME(LOC) 6N.2; GLUCOSE,POINT OF CARE 190 MG/DL (70-110)
[2019-07-04 19:28] LABS: GLUCOMETER DEV NAME(LOC) 6N.1; GLUCOSE,POINT OF CARE 101 MG/DL (70-110)
[2019-07-04 19:34] VITALS: BP 165/102
[2019-07-04] MEDS: HydrALAZINE HCL 25 MG TABLET PO SCH (19:42)
[2019-07-04] MEDS: INSULIN GLARGINE,HUM.REC.ANLOG 100 UNITS/ML SQ SCH (20:29)
[2019-07-04 20:37] LABS: GLUCOMETER DEV NAME(LOC) 6N.2; GLUCOSE,POINT OF CARE 126 MG/DL (70-110)
[2019-07-04] MEDS: CefTRIAXone 1 GM/DEXTROSE 50 ML IV SCH (21:41)
[2019-07-04 23:36] VITALS: BP 143/96
[2019-07-05 04:38] VITALS: BP 156/95
[2019-07-05] MEDS: INSULIN LISPRO 100 UNITS/ML SQ PRN ×4 (06:35→21:31)
[2019-07-05 07:26] VITALS: BP 144/94
[2019-07-05] MEDS: METOPROLOL SUCCINATE 25 MG ER TABLET PO SCH (09:35)
[2019-07-05] MEDS: DOCUSATE SODIUM 100 MG CAPSULE PO SCH ×2 (09:35→20:38)
[2019-07-05] MEDS: MULTIVITAMINS, THERAPEUTIC TABLET PO SCH (09:35)
[2019-07-05] MEDS: HEPARIN SODIUM,PORCINE 5,000 UNITS/ML VIAL SQ SCH ×2 (09:35→15:56)
[2019-07-05] MEDS: ROSUVASTATIN CALCIUM 20 MG TABLET PO SCH (09:36)
[2019-07-05] MEDS: LATANOPROST 0.005% 2.5 ML OPHTHALMIC SOLUTION OU SCH (09:36)
[2019-07-05] MEDS: FERROUS SULFATE 325 MG EC TABLET PO SCH (09:36)
[2019-07-05] MEDS: HydrALAZINE HCL 25 MG TABLET PO SCH ×2 (09:36→20:38)
[2019-07-05] MEDS: PARoxetine HCL 20 MG TABLET PO SCH (09:36)
[2019-07-05 11:19] VITALS: BP 156/87
[2019-07-05 12:11] LABS: GLUCOMETER DEV NAME(LOC) 6N.1; GLUCOSE,POINT OF CARE 202 MG/DL (70-110)
[2019-07-05 13:46] LABS: BASOPHILS % (AUTO) 0.4 % (0.0-2.0); EOSINOPHILS % (AUTO) 1.4 % (1.0-6.0); HEMATOCRIT 28.7 % (36-46); HEMOGLOBIN 9.4 g/dL (12.0-16.0); LYMPHOCYTES # (AUTO) 0.6 K/uL (1.0-4.8); LYMPHOCYTES % (AUTO) 9.1 % (22.0-44.0); MEAN CORPUSCULAR HEMOGLOBIN 26.8 pg (26.0-34.0); MEAN CORPUSCULAR HGB CONC 32.9 G/dL (31.0-37.0); MEAN CORPUSCULAR VOLUME 82 fL (80-100); MONOCYTES # (AUTO) 0.3 K/uL (0.1-1.0); MONOCYTES % (AUTO) 5.2 % (2.0-9.0); NEUTROPHILS # (AUTO) 5.6 K/uL (1.8-7.7); NEUTROPHILS % (AUTO) 83.9 % (40.0-70.0); PLATELET COUNT (AUTO) 499 K/uL (150-450); RED BLOOD CELL COUNT(AUTO) 3.52 MIL/uL (4.00-5.20); RED CELL DISTRIBUTION WIDTH 14.4 % (11.5-14.5)
[2019-07-05 14:00] LABS: CALCIUM, TOTAL 8.2 mg/dL (8.8-10.5); CREATININE 1.64 mg/dL (0.60-1.30); POTASSIUM 4.2 mmol/L (3.5-5.1)
[2019-07-05 14:04] LABS: ALBUMIN 1.4 g/dL (3.4-5.0); BILIRUBIN,TOTAL 0.1 mg/dL (0.1-1.0); TOTAL PROTEIN, SERUM 5.6 g/dL (6.4-8.2)
[2019-07-05] MEDS: SODIUM CHLORIDE 0.9% 1,000 ML IV SCH ×2 (15:57→20:39)
[2019-07-05 17:00] VITALS: BP 146/84
[2019-07-05 17:44] LABS: GLUCOMETER DEV NAME(LOC) 6N.1; GLUCOSE,POINT OF CARE 204 MG/DL (70-110)
[2019-07-05 19:56] LABS: GLUCOMETER DEV NAME(LOC) 6N.2; GLUCOSE,POINT OF CARE 138 MG/DL (70-110)
[2019-07-05 20:37] VITALS: BP 155/92
[2019-07-05] MEDS: CefTRIAXone 1 GM/DEXTROSE 50 ML IV SCH (21:01)
[2019-07-05] MEDS: INSULIN GLARGINE,HUM.REC.ANLOG 100 UNITS/ML SQ SCH (21:30)
[2019-07-06] VITALS: BP 142/68
[2019-07-06] MEDS: HEPARIN SODIUM,PORCINE 5,000 UNITS/ML VIAL SQ SCH ×3 (00:56→16:56)
[2019-07-06 04:47] VITALS: BP 154/93
[2019-07-06] MEDS: INSULIN LISPRO 100 UNITS/ML SQ PRN ×2 (06:04→17:36)
[2019-07-06 07:56] LABS: BASOPHILS % (AUTO) 0.9 % (0.0-2.0); EOSINOPHILS % (AUTO) 1.3 % (1.0-6.0); HEMATOCRIT 27.2 % (36-46); LYMPHOCYTES # (AUTO) 0.7 K/uL (1.0-4.8); LYMPHOCYTES % (AUTO) 10.1 % (22.0-44.0); MEAN CORPUSCULAR HGB CONC 33.2 G/dL (31.0-37.0); MEAN CORPUSCULAR VOLUME 82 fL (80-100); MONOCYTES # (AUTO) 0.4 K/uL (0.1-1.0); MONOCYTES % (AUTO) 5.6 % (2.0-9.0); NEUTROPHILS # (AUTO) 5.4 K/uL (1.8-7.7); NEUTROPHILS % (AUTO) 82.1 % (40.0-70.0); PLATELET COUNT (AUTO) 496 K/uL (150-450); RED BLOOD CELL COUNT(AUTO) 3.34 MIL/uL (4.00-5.20); RED CELL DISTRIBUTION WIDTH 14.1 % (11.5-14.5)
[2019-07-06 08:31] VITALS: BP 138/89
[2019-07-06] MEDS: FERROUS SULFATE 325 MG EC TABLET PO SCH (08:39)
[2019-07-06] MEDS: DOCUSATE SODIUM 100 MG CAPSULE PO SCH (08:39)
[2019-07-06] MEDS: MULTIVITAMINS, THERAPEUTIC TABLET PO SCH (08:39)
[2019-07-06] MEDS: LATANOPROST 0.005% 2.5 ML OPHTHALMIC SOLUTION OU SCH (08:40)
[2019-07-06] MEDS: HydrALAZINE HCL 25 MG TABLET PO SCH (08:40)
[2019-07-06] MEDS: PARoxetine HCL 20 MG TABLET PO SCH (08:40)
[2019-07-06] MEDS: ROSUVASTATIN CALCIUM 20 MG TABLET PO SCH (08:40)
[2019-07-06] MEDS: METOPROLOL SUCCINATE 25 MG ER TABLET PO SCH (08:40)
[2019-07-06 12:07] LABS: GLUCOMETER DEV NAME(LOC) 6N.1; GLUCOSE,POINT OF CARE 93 MG/DL (70-110)
[2019-07-06 12:07] LABS: GLUCOMETER DEV NAME(LOC) 6N.1; GLUCOSE,POINT OF CARE 223 MG/DL (70-110)
[2019-07-06 13:06] VITALS: BP 177/92
[2019-07-06 13:22] LABS: GLUCOMETER DEV NAME(LOC) 6N.2; GLUCOSE,POINT OF CARE 111 MG/DL (70-110)
[2019-07-06 15:40] VITALS: BP 160/98
[2019-07-06 18:52] LABS: GLUCOMETER DEV NAME(LOC) 6N.1; GLUCOSE,POINT OF CARE 172 MG/DL (70-110)
== END 2019-07-06 18:45 | disposition short-term general hospital (02) | DRG 420 ==
LOC: EMS 15:47 → 6N 07-03 06:30
PROVIDERS: ADMIT Hospitalist; ATTEND Hospitalist
DX: E11.65 Type 2 diabetes mellitus with hyperglycemia (principal); N17.0 Acute kidney failure with tubular necrosis; E43 Unspecified severe protein-calorie malnutrition; D64.9 Anemia, unspecified; E78.5 Hyperlipidemia, unspecified; F32.9 Major depressive disorder, single episode, unspecified; E86.0 Dehydration; N39.0 Urinary tract infection, site not specified; F20.0 Paranoid schizophrenia; D72.829 Elevated white blood cell count, unspecified; E87.1 Hypo-osmolality and hyponatremia; I10 Essential (primary) hypertension; Z79.899 Other long term (current) drug therapy; Z68.42 Body mass index [BMI] 45.0-49.9, adult; Z68.1 Body mass index [BMI] 19.9 or less, adult
CPT/HCPCS: 83605; 83735; 84100; 87086; 93005; 99291; G0480; J0696; J1644; J1815; J3475; J7030

== ENCOUNTER 2019-07-06 18:45 | Inpatient (IN) | payer MEDICAID ==
[~2019-07-06] VITALS: Ht 154.9 cm; Wt 53.4 kg
[~2019-07-06 18:45] MED LIST changes: -LAMO25TA25 PO; -OLAN10TA3 PO
[2019-07-06] MEDS ORDERED: IPRATROPIUM BROMIDE 0.5 MG/2.5 ML NEB SOLUTION NEB PRN (20:00)
[2019-07-06] MEDS ORDERED: ALBUTEROL SULFATE 2.5 MG/0.5 ML NEB SOLUTION NEB PRN (20:00)
[2019-07-06] MEDS ORDERED: ACETAMINOPHEN 325 MG TABLET PO PRN (20:00)
[2019-07-06] MEDS ORDERED: DEXTROSE 50%-WATER 25 GM/50 ML SYRINGE IVP PRN (20:00)
[2019-07-06] MEDS ORDERED: MAGNESIUM HYDROXIDE SUSPENSION 30 ML UDCUP PO PRN (20:00)
[2019-07-06 20:23] VITALS: BP 155/101
[2019-07-06 20:39] LABS: GLUCOMETER DEV NAME(LOC) 3E.I 2; GLUCOSE,POINT OF CARE 100 MG/DL (70-110)
[2019-07-06] MEDS ORDERED: LORazepam 2 MG TABLET PO PRN (20:45)
[2019-07-06] MEDS ORDERED: HALOPERIDOL 5 MG TABLET PO PRN (20:45)
[2019-07-06] MEDS ORDERED: INSULIN GLARGINE,HUM.REC.ANLOG 100 UNITS/ML SQ SCH (21:00)
[2019-07-07] MEDS: ZOLPIDEM TARTRATE 10 MG TABLET PO PRN (02:18)
[2019-07-07 02:57] VITALS: BP 159/96
[2019-07-07] MEDS: FERROUS SULFATE 325 MG EC TABLET PO SCH (06:32)
[2019-07-07] MEDS: LATANOPROST 0.005% 2.5 ML OPHTHALMIC SOLUTION OU SCH (08:35)
[2019-07-07] MEDS: ROSUVASTATIN CALCIUM 20 MG TABLET PO SCH (08:35)
[2019-07-07] MEDS: HydrALAZINE HCL 25 MG TABLET PO SCH ×2 (08:35→17:05)
[2019-07-07] MEDS: DOCUSATE SODIUM 100 MG CAPSULE PO SCH ×2 (08:35→17:05)
[2019-07-07] MEDS: BISACODYL 5 MG EC TABLET PO SCH (08:36)
[2019-07-07] MEDS: MULTIVITAMINS WITH MINERALS, THERAPEUTIC TABLET PO SCH (08:36)
[2019-07-07] MEDS: PARoxetine HCL 20 MG TABLET PO SCH (08:36)
[2019-07-07] MEDS: METOPROLOL SUCCINATE 25 MG ER TABLET PO SCH (08:36)
[2019-07-07 09:40] LABS: GLUCOMETER DEV NAME(LOC) 3E.I 2; GLUCOSE,POINT OF CARE 107 MG/DL (70-110)
[2019-07-07 10:10] VITALS: BP 132/82
[2019-07-07] MEDS: INSULIN LISPRO 100 UNITS/ML SQ PRN ×3 (11:51→21:03)
[2019-07-07 11:57] LABS: GLUCOMETER DEV NAME(LOC) 3E.I 2; GLUCOSE,POINT OF CARE 147 MG/DL (70-110)
[2019-07-07 17:22] LABS: GLUCOMETER DEV NAME(LOC) 3E.I 2; GLUCOSE,POINT OF CARE 172 MG/DL (70-110)
[2019-07-07 20:02] VITALS: BP 171/95
[2019-07-07 21:11] LABS: GLUCOMETER DEV NAME(LOC) 3E.I 2; GLUCOSE,POINT OF CARE 132 MG/DL (70-110)
[2019-07-08 05:46] LABS: GLUCOMETER DEV NAME(LOC) 3E.I 2; GLUCOSE,POINT OF CARE 141 MG/DL (70-110)
[2019-07-08] MEDS: INSULIN LISPRO 100 UNITS/ML SQ PRN ×4 (06:47→21:06)
[2019-07-08] MEDS: FERROUS SULFATE 325 MG EC TABLET PO SCH (06:47)
[2019-07-08] MEDS: LATANOPROST 0.005% 2.5 ML OPHTHALMIC SOLUTION OU SCH (08:38)
[2019-07-08] MEDS: BISACODYL 5 MG EC TABLET PO SCH (08:39)
[2019-07-08] MEDS: METOPROLOL SUCCINATE 25 MG ER TABLET PO SCH (08:39)
[2019-07-08] MEDS: DOCUSATE SODIUM 100 MG CAPSULE PO SCH ×2 (08:39→16:46)
[2019-07-08] MEDS: PARoxetine HCL 20 MG TABLET PO SCH (08:39)
[2019-07-08] MEDS: ROSUVASTATIN CALCIUM 20 MG TABLET PO SCH (08:39)
[2019-07-08] MEDS: HydrALAZINE HCL 25 MG TABLET PO SCH ×2 (08:39→16:45)
[2019-07-08] MEDS: MULTIVITAMINS WITH MINERALS, THERAPEUTIC TABLET PO SCH (08:39)
[2019-07-08 09:34] VITALS: BP 137/84
[2019-07-08 11:35] LABS: GLUCOMETER DEV NAME(LOC) 3E.I 2; GLUCOSE,POINT OF CARE 203 MG/DL (70-110)
[2019-07-08 16:00] VITALS: BP 145/76
[2019-07-08 16:59] LABS: GLUCOMETER DEV NAME(LOC) 3E.I 2; GLUCOSE,POINT OF CARE 181 MG/DL (70-110)
[2019-07-08] MEDS: OLANZapine 7.5 MG TABLET PO SCH (20:46)
[2019-07-08 21:08] LABS: GLUCOMETER DEV NAME(LOC) 3E.I 2; GLUCOSE,POINT OF CARE 209 MG/DL (70-110)
[2019-07-09 05:41] LABS: GLUCOMETER DEV NAME(LOC) 3E.I 2; GLUCOSE,POINT OF CARE 232 MG/DL (70-110)
[2019-07-09] MEDS: FERROUS SULFATE 325 MG EC TABLET PO SCH (06:54)
[2019-07-09] MEDS: INSULIN LISPRO 100 UNITS/ML SQ PRN ×4 (06:54→20:26)
[2019-07-09 08:00] VITALS: BP 138/90
[2019-07-09] MEDS: PARoxetine HCL 20 MG TABLET PO SCH (09:24)
[2019-07-09] MEDS: METOPROLOL SUCCINATE 25 MG ER TABLET PO SCH (09:24)
[2019-07-09] MEDS: DOCUSATE SODIUM 100 MG CAPSULE PO SCH ×2 (09:24→16:15)
[2019-07-09] MEDS: HydrALAZINE HCL 25 MG TABLET PO SCH ×2 (09:25→16:15)
[2019-07-09] MEDS: BISACODYL 5 MG EC TABLET PO SCH (09:25)
[2019-07-09] MEDS: ROSUVASTATIN CALCIUM 20 MG TABLET PO SCH (09:25)
[2019-07-09] MEDS: LamoTRIgine 25 MG TABLET PO SCH ×2 (09:25→16:15)
[2019-07-09] MEDS: BENZTROPINE MESYLATE 1 MG TABLET PO SCH ×2 (09:25→16:15)
[2019-07-09] MEDS: MULTIVITAMINS WITH MINERALS, THERAPEUTIC TABLET PO SCH (09:25)
[2019-07-09] MEDS: LATANOPROST 0.005% 2.5 ML OPHTHALMIC SOLUTION OU SCH (09:26)
[2019-07-09 10:51] LABS: GLUCOMETER DEV NAME(LOC) 3E.I 2; GLUCOSE,POINT OF CARE 278 MG/DL (70-110)
[2019-07-09 16:42] LABS: GLUCOMETER DEV NAME(LOC) 3E.I 2; GLUCOSE,POINT OF CARE 230 MG/DL (70-110)
[2019-07-09 17:14] VITALS: BP 149/93
[2019-07-09] MEDS: OLANZapine 7.5 MG TABLET PO SCH (20:19)
[2019-07-09 20:39] LABS: GLUCOMETER DEV NAME(LOC) 3E.I 2; GLUCOSE,POINT OF CARE 241 MG/DL (70-110)
[2019-07-09] MEDS: ZOLPIDEM TARTRATE 10 MG TABLET PO PRN (22:46)
[2019-07-10 05:51] LABS: GLUCOMETER DEV NAME(LOC) 3E.I 2; GLUCOSE,POINT OF CARE 199 MG/DL (70-110)
[2019-07-10] MEDS: FERROUS SULFATE 325 MG EC TABLET PO SCH (06:40)
[2019-07-10] MEDS: INSULIN LISPRO 100 UNITS/ML SQ PRN ×4 (06:41→21:17)
[2019-07-10 08:52] VITALS: BP 145/97
[2019-07-10] MEDS: PARoxetine HCL 20 MG TABLET PO SCH (09:26)
[2019-07-10] MEDS: MULTIVITAMINS WITH MINERALS, THERAPEUTIC TABLET PO SCH (09:26)
[2019-07-10] MEDS: DOCUSATE SODIUM 100 MG CAPSULE PO SCH ×2 (09:26→16:28)
[2019-07-10] MEDS: LamoTRIgine 25 MG TABLET PO SCH ×2 (09:26→16:28)
[2019-07-10] MEDS: METOPROLOL SUCCINATE 25 MG ER TABLET PO SCH (09:27)
[2019-07-10] MEDS: BENZTROPINE MESYLATE 1 MG TABLET PO SCH ×2 (09:27→16:28)
[2019-07-10] MEDS: LATANOPROST 0.005% 2.5 ML OPHTHALMIC SOLUTION OU SCH (09:28)
[2019-07-10] MEDS: HydrALAZINE HCL 25 MG TABLET PO SCH ×2 (09:28→16:28)
[2019-07-10] MEDS: ROSUVASTATIN CALCIUM 20 MG TABLET PO SCH (09:28)
[2019-07-10] MEDS: BISACODYL 5 MG EC TABLET PO SCH (09:28)
[2019-07-10 11:55] LABS: GLUCOMETER DEV NAME(LOC) 3E.I 2; GLUCOSE,POINT OF CARE 256 MG/DL (70-110)
[2019-07-10 17:15] LABS: GLUCOMETER DEV NAME(LOC) 3E.I 2; GLUCOSE,POINT OF CARE 186 MG/DL (70-110)
[2019-07-10 18:05] VITALS: BP 134/89
[2019-07-10] MEDS: OLANZapine 7.5 MG TABLET PO SCH (21:11)
[2019-07-10 21:26] LABS: GLUCOMETER DEV NAME(LOC) 3E.I 2; GLUCOSE,POINT OF CARE 287 MG/DL (70-110)
[2019-07-11 05:44] LABS: GLUCOMETER DEV NAME(LOC) 3E.I 2; GLUCOSE,POINT OF CARE 255 MG/DL (70-110)
[2019-07-11] MEDS: FERROUS SULFATE 325 MG EC TABLET PO SCH (06:35)
[2019-07-11] MEDS: INSULIN LISPRO 100 UNITS/ML SQ PRN ×4 (06:35→21:52)
[2019-07-11 08:49] VITALS: BP 118/73
[2019-07-11] MEDS: METOPROLOL SUCCINATE 25 MG ER TABLET PO SCH (08:53)
[2019-07-11] MEDS: LamoTRIgine 25 MG TABLET PO SCH ×2 (08:53→17:04)
[2019-07-11] MEDS: DOCUSATE SODIUM 100 MG CAPSULE PO SCH ×2 (08:53→17:04)
[2019-07-11] MEDS: BISACODYL 5 MG EC TABLET PO SCH (08:54)
[2019-07-11] MEDS: HydrALAZINE HCL 25 MG TABLET PO SCH ×2 (08:54→17:04)
[2019-07-11] MEDS: MULTIVITAMINS WITH MINERALS, THERAPEUTIC TABLET PO SCH (08:54)
[2019-07-11] MEDS: ROSUVASTATIN CALCIUM 20 MG TABLET PO SCH (08:54)
[2019-07-11] MEDS: BENZTROPINE MESYLATE 1 MG TABLET PO SCH ×2 (08:54→17:04)
[2019-07-11] MEDS: LATANOPROST 0.005% 2.5 ML OPHTHALMIC SOLUTION OU SCH (08:55)
[2019-07-11] MEDS: PARoxetine HCL 20 MG TABLET PO SCH (08:56)
[2019-07-11 11:45] LABS: GLUCOMETER DEV NAME(LOC) 3E.I 2; GLUCOSE,POINT OF CARE 242 MG/DL (70-110)
[2019-07-11] MEDS ORDERED: INSULIN GLARGINE,HUM.REC.ANLOG 100 UNITS/ML SQ ONE (12:15)
[2019-07-11 17:21] LABS: GLUCOMETER DEV NAME(LOC) 3E.I 2; GLUCOSE,POINT OF CARE 194 MG/DL (70-110)
[2019-07-11 18:35] VITALS: BP 127/85
[2019-07-11] MEDS ORDERED: INSULIN GLARGINE,HUM.REC.ANLOG 100 UNITS/ML SQ SCH (21:00)
[2019-07-11 21:20] LABS: GLUCOMETER DEV NAME(LOC) 3E.I 2; GLUCOSE,POINT OF CARE 248 MG/DL (70-110)
[2019-07-11] MEDS: OLANZapine 7.5 MG TABLET PO SCH (21:50)
[2019-07-12 04:29] VITALS: BP 124/81
[2019-07-12 06:11] LABS: GLUCOMETER DEV NAME(LOC) 3E.I 2; GLUCOSE,POINT OF CARE 194 MG/DL (70-110)
[2019-07-12] MEDS: FERROUS SULFATE 325 MG EC TABLET PO SCH (06:34)
[2019-07-12] MEDS: INSULIN LISPRO 100 UNITS/ML SQ PRN ×4 (07:09→21:16)
[2019-07-12 08:38] VITALS: BP 144/86
[2019-07-12] MEDS: PARoxetine HCL 20 MG TABLET PO SCH (08:47)
[2019-07-12] MEDS: MULTIVITAMINS WITH MINERALS, THERAPEUTIC TABLET PO SCH (08:47)
[2019-07-12] MEDS: HydrALAZINE HCL 25 MG TABLET PO SCH ×2 (08:47→17:14)
[2019-07-12] MEDS: BENZTROPINE MESYLATE 1 MG TABLET PO SCH ×2 (08:47→17:14)
[2019-07-12] MEDS: DOCUSATE SODIUM 100 MG CAPSULE PO SCH ×2 (08:47→17:00)
[2019-07-12] MEDS: LamoTRIgine 25 MG TABLET PO SCH ×2 (08:47→17:14)
[2019-07-12] MEDS: METOPROLOL SUCCINATE 25 MG ER TABLET PO SCH (08:47)
[2019-07-12] MEDS: BISACODYL 5 MG EC TABLET PO SCH (08:47)
[2019-07-12] MEDS: ROSUVASTATIN CALCIUM 20 MG TABLET PO SCH (08:47)
[2019-07-12] MEDS: LATANOPROST 0.005% 2.5 ML OPHTHALMIC SOLUTION OU SCH (08:48)
[2019-07-12 13:31] LABS: GLUCOMETER DEV NAME(LOC) 3E.I 2; GLUCOSE,POINT OF CARE 361 MG/DL (70-110)
[2019-07-12] MEDS: IBUPROFEN 600 MG TABLET PO PRN (14:01)
[2019-07-12] MEDS: OLANZapine 7.5 MG TABLET PO SCH (20:59)
[2019-07-12] MEDS: INSULIN GLARGINE,HUM.REC.ANLOG 100 UNITS/ML SQ SCH (21:11)
[2019-07-12 21:15] LABS: GLUCOMETER DEV NAME(LOC) 3E.I 2; GLUCOSE,POINT OF CARE 265 MG/DL (70-110)
[2019-07-12 21:32] VITALS: BP 132/85
[2019-07-13 06:00] LABS: GLUCOMETER DEV NAME(LOC) 3E.I 2; GLUCOSE,POINT OF CARE 167 MG/DL (70-110)
[2019-07-13] MEDS: FERROUS SULFATE 325 MG EC TABLET PO SCH (06:54)
[2019-07-13] MEDS: INSULIN LISPRO 100 UNITS/ML SQ PRN ×4 (06:55→21:04)
[2019-07-13 08:42] VITALS: BP 124/84
[2019-07-13] MEDS: DOCUSATE SODIUM 100 MG CAPSULE PO SCH ×3 (09:00→17:08)
[2019-07-13] MEDS: LamoTRIgine 25 MG TABLET PO SCH ×2 (10:10→17:08)
[2019-07-13] MEDS: PARoxetine HCL 20 MG TABLET PO SCH (10:10)
[2019-07-13] MEDS: METOPROLOL SUCCINATE 25 MG ER TABLET PO SCH (10:10)
[2019-07-13] MEDS: BENZTROPINE MESYLATE 1 MG TABLET PO SCH ×2 (10:10→17:08)
[2019-07-13] MEDS: MULTIVITAMINS WITH MINERALS, THERAPEUTIC TABLET PO SCH (10:10)
[2019-07-13] MEDS: ROSUVASTATIN CALCIUM 20 MG TABLET PO SCH (10:11)
[2019-07-13] MEDS: BISACODYL 5 MG EC TABLET PO SCH (10:11)
[2019-07-13] MEDS: LATANOPROST 0.005% 2.5 ML OPHTHALMIC SOLUTION OU SCH (10:12)
[2019-07-13] MEDS: HydrALAZINE HCL 25 MG TABLET PO SCH ×2 (10:12→17:08)
[2019-07-13] MEDS: IBUPROFEN 600 MG TABLET PO PRN (10:57)
[2019-07-13 11:14] LABS: GLUCOMETER DEV NAME(LOC) 3E.I 2; GLUCOSE,POINT OF CARE 303 MG/DL (70-110)
[2019-07-13 11:57] VITALS: BP 153/93
[2019-07-13 17:26] LABS: GLUCOMETER DEV NAME(LOC) 3E.I 2; GLUCOSE,POINT OF CARE 291 MG/DL (70-110)
[2019-07-13 19:21] VITALS: BP 150/93
[2019-07-13] MEDS: OLANZapine 7.5 MG TABLET PO SCH (21:01)
[2019-07-13] MEDS: INSULIN GLARGINE,HUM.REC.ANLOG 100 UNITS/ML SQ SCH (21:04)
[2019-07-13 21:56] LABS: GLUCOMETER DEV NAME(LOC) 3E.I 2; GLUCOSE,POINT OF CARE 246 MG/DL (70-110)
[2019-07-14 03:39] VITALS: BP 123/88
[2019-07-14 05:48] LABS: GLUCOMETER DEV NAME(LOC) 3E.I 2; GLUCOSE,POINT OF CARE 227 MG/DL (70-110)
[2019-07-14] MEDS: INSULIN LISPRO 100 UNITS/ML SQ PRN ×2 (06:54→12:11)
[2019-07-14] MEDS: FERROUS SULFATE 325 MG EC TABLET PO SCH (07:01)
[2019-07-14] MEDS: PARoxetine HCL 20 MG TABLET PO SCH (08:21)
[2019-07-14] MEDS: METOPROLOL SUCCINATE 25 MG ER TABLET PO SCH (08:21)
[2019-07-14] MEDS: MULTIVITAMINS WITH MINERALS, THERAPEUTIC TABLET PO SCH (08:21)
[2019-07-14] MEDS: DOCUSATE SODIUM 100 MG CAPSULE PO SCH (08:22)
[2019-07-14] MEDS: BISACODYL 5 MG EC TABLET PO SCH (08:23)
[2019-07-14] MEDS: LamoTRIgine 25 MG TABLET PO SCH (08:23)
[2019-07-14] MEDS: HydrALAZINE HCL 25 MG TABLET PO SCH (08:24)
[2019-07-14] MEDS: BENZTROPINE MESYLATE 1 MG TABLET PO SCH (08:24)
[2019-07-14] MEDS: LATANOPROST 0.005% 2.5 ML OPHTHALMIC SOLUTION OU SCH (08:25)
[2019-07-14] MEDS: ROSUVASTATIN CALCIUM 20 MG TABLET PO SCH (08:25)
[2019-07-14 09:20] VITALS: BP 149/106
[2019-07-14 11:06] LABS: GLUCOMETER DEV NAME(LOC) 3E.I 2; GLUCOSE,POINT OF CARE 227 MG/DL (70-110)
[2019-07-14] MEDS ORDERED: LAMO25TA25 PO (11:18)
[2019-07-14] MEDS ORDERED: OLAN7.5T2 PO (11:18)
[2019-07-14] MEDS ORDERED: BENZ1TAB10 PO (11:18)
[2019-07-14] MEDS ORDERED: BISA-151 PO (11:32)
[2019-07-14] MEDS ORDERED: INSLAN SQ (11:32)
[2019-07-14] MEDS ORDERED: MULT-1239 PO (11:32)
[2019-07-14] MEDS ORDERED: DOCU-275 PO (11:32)
[2019-07-14] MEDS ORDERED: HYDR25TA84 PO (11:32)
== END 2019-07-14 15:00 | disposition home or self-care (01) | DRG 885 ==
LOC: 3EI 18:45
PROVIDERS: ADMIT Psychiatry & Neurology Psychiatry; ATTEND Psychiatry & Neurology Psychiatry
DX: F20.0 Paranoid schizophrenia (principal); N18.3 Chronic kidney disease, stage 3 (moderate); E11.65 Type 2 diabetes mellitus with hyperglycemia; R45.851 Suicidal ideations; E11.22 Type 2 diabetes mellitus with diabetic chronic kidney disease; G47.00 Insomnia, unspecified; H40.9 Unspecified glaucoma; K59.00 Constipation, unspecified; Z79.899 Other long term (current) drug therapy
CPT/HCPCS: 87081; J1815

== ENCOUNTER 2019-07-23 14:55 | Emergency (ER) | payer MEDICAID, OTHER ==
[~2019-07-23] VITALS: Ht 152.4 cm; Wt 58.5 kg
[~2019-07-23 14:55] MED LIST changes: +BENZ1TAB10 PO; -BIOT10TA2 PO; +BISA-151 PO; +DOCU-275 PO; +HYDR25TA84 PO; +INSLAN SQ; -INSU100V SQ; -INSU300I SQ; +LAMO25TA25 PO; -MULT-1203 PO; +MULT-1239 PO; -NACL1 PO; +OLAN7.5T2 PO
[2019-07-23 15:20] LABS: GLUCOSE,POINT OF CARE 408 MG/DL (70-110)
[2019-07-23 16:32] LABS: BASOPHILS % (AUTO) 0.4 % (0.0-2.0); EOSINOPHILS % (AUTO) 1.8 % (1.0-6.0); HEMATOCRIT 27.6 % (36-46); HEMOGLOBIN 8.9 g/dL (12.0-16.0); LYMPHOCYTES # (AUTO) 0.7 K/uL (1.0-4.8); LYMPHOCYTES % (AUTO) 7.9 % (22.0-44.0); MEAN CORPUSCULAR HGB CONC 32.2 G/dL (31.0-37.0); MEAN CORPUSCULAR VOLUME 84 fL (80-100); MONOCYTES # (AUTO) 0.5 K/uL (0.1-1.0); MONOCYTES % (AUTO) 5.5 % (2.0-9.0); NEUTROPHILS # (AUTO) 7.2 K/uL (1.8-7.7); NEUTROPHILS % (AUTO) 84.4 % (40.0-70.0); PLATELET COUNT (AUTO) 408 K/uL (150-450); RED BLOOD CELL COUNT(AUTO) 3.29 MIL/uL (4.00-5.20); RED CELL DISTRIBUTION WIDTH 15.3 % (11.5-14.5)
[2019-07-23 16:44] LABS: ANION GAP 8 mmol/L (8-16); CARBON DIOXIDE 24 mmol/L (22-29); CHLORIDE 103 mmol/L (98-107); CREATININE 2.27 mg/dL (0.60-1.30); GLOMERULAR FILTR. RATE CALC 23 mL/min (>60); GLUCOSE,RANDOM 367 mg/dL (70-110); SODIUM SERUM 135 mmol/L (136-145); UREA NITROGEN, BLOOD 35 mg/dL (7-18)
[2019-07-23 16:52] LABS: LACTIC ACID 1.5 mmol/L (0.4-2.0)
[2019-07-23 16:58] LABS: ALANINE AMINOTRANSFERASE 24 U/L (12-78); ALBUMIN 2.2 g/dL (3.4-5.0); ALKALINE PHOSPHATASE 114 U/L (46-116); ASPARTATE AMINOTRANSFERASE 16 U/L (15-37); BILIRUBIN,TOTAL 0.1 mg/dL (0.1-1.0); HCG,QUANTITATIVE < 1 mIU/mL (0-6); LIPASE 207 U/L (73-393); TOTAL PROTEIN, SERUM 6.7 g/dL (6.4-8.2)
[2019-07-23 17:20] LABS: ACETONE,BLOOD NEGATIVE (NEGATIVE)
[2019-07-23] MEDS ORDERED: INSULIN REGULAR, HUMAN 100 UNITS/ML SQ ONE (17:30)
[2019-07-23] MEDS ORDERED: FUROSEMIDE 20 MG TABLET PO ONE (17:30)
[2019-07-23 18:25] VITALS: BP 182/101
== END 2019-07-23 19:04 | disposition home or self-care (01) ==
LOC: EMS 14:59
DX: R60.0 Localized edema (principal); E11.65 Type 2 diabetes mellitus with hyperglycemia; E11.40 Type 2 diabetes mellitus with diabetic neuropathy, unspecified; F32.9 Major depressive disorder, single episode, unspecified; F20.9 Schizophrenia, unspecified; Z79.899 Other long term (current) drug therapy; Z91.011 Allergy to milk products
CPT/HCPCS: 36415; 80053; 82009; 82962; 83605; 83690; 84484; 84702; 85025; 96372; 99283; G0480; J1815

== ENCOUNTER 2019-08-29 17:28 | Inpatient (IN) | payer MEDICAID, OTHER ==
[~2019-08-29] VITALS: Ht 152.4 cm; Wt 54.4 kg
[~2019-08-29 17:28] MED LIST changes: -BISA-151 PO; -DOCU-275 PO
[2019-08-29 17:44] LABS: GLUCOSE,POINT OF CARE 343 MG/DL (70-110)
[2019-08-29 19:47] LABS: BASOPHILS % (AUTO) 0.6 % (0.0-2.0); EOSINOPHILS % (AUTO) 0.1 % (1.0-6.0); HEMATOCRIT 27.7 % (36-46); HEMOGLOBIN 8.9 g/dL (12.0-16.0); LYMPHOCYTES # (AUTO) 0.3 K/uL (1.0-4.8); LYMPHOCYTES % (AUTO) 5.3 % (22.0-44.0); MEAN CORPUSCULAR HEMOGLOBIN 26.4 pg (26.0-34.0); MEAN CORPUSCULAR HGB CONC 32.1 G/dL (31.0-37.0); MEAN CORPUSCULAR VOLUME 82 fL (80-100); MONOCYTES # (AUTO) 0.2 K/uL (0.1-1.0); NEUTROPHILS # (AUTO) 5.5 K/uL (1.8-7.7); PLATELET COUNT (AUTO) 362 K/uL (150-450); RED BLOOD CELL COUNT(AUTO) 3.38 MIL/uL (4.00-5.20); RED CELL DISTRIBUTION WIDTH 15.3 % (11.5-14.5)
[2019-08-29 19:56] LABS: ANION GAP 13 mmol/L (8-16); CALCIUM, TOTAL 8.9 mg/dL (8.8-10.5); CARBON DIOXIDE 20 mmol/L (22-29); CHLORIDE 100 mmol/L (98-107); CREATININE 2.38 mg/dL (0.60-1.30); GLOMERULAR FILTR. RATE CALC 22 mL/min (>60); GLUCOSE,RANDOM 333 mg/dL (70-110); POTASSIUM 3.7 mmol/L (3.5-5.1); SODIUM SERUM 133 mmol/L (136-145); UREA NITROGEN, BLOOD 27 mg/dL (7-18)
[2019-08-29 20:03] LABS: ALANINE AMINOTRANSFERASE 16 U/L (12-78); ALBUMIN 1.9 g/dL (3.4-5.0); ALKALINE PHOSPHATASE 103 U/L (46-116); ASPARTATE AMINOTRANSFERASE 18 U/L (15-37); TOTAL PROTEIN, SERUM 5.7 g/dL (6.4-8.2)
[2019-08-29 20:25] LABS: BILIRUBIN,TOTAL 0.1 mg/dL (0.1-1.0)
[2019-08-29] MEDS ORDERED: SODIUM CHLORIDE 0.9% 1,000 ML IV ONE (20:30)
[2019-08-29] MEDS ORDERED: HALOPERIDOL 5 MG TABLET PO PRN (21:30)
[2019-08-29] MEDS ORDERED: ZOLPIDEM TARTRATE 10 MG TABLET PO PRN (21:30)
[2019-08-29] MEDS ORDERED: LORazepam 2 MG TABLET PO PRN (21:30)
[2019-08-29] MEDS ORDERED: INSULIN LISPRO 100 UNITS/ML SQ ONE (22:15)
[2019-08-29 22:17] LABS: GLUCOSE,POINT OF CARE 231 MG/DL (70-110)
[2019-08-29] MEDS ORDERED: IBUPROFEN 400 MG TABLET PO PRN (23:00)
[2019-08-29] MEDS ORDERED: MAGNESIUM HYDROXIDE SUSPENSION 30 ML UDCUP PO PRN (23:00)
[2019-08-29] MEDS ORDERED: MAG HYDROX/AL HYDROX/SIMETH ES 30 ML SUSPENSION UDCUP PO PRN (23:00)
[2019-08-29] MEDS ORDERED: CloNIDine HCL 0.1 MG TABLET PO PRN (23:00)
[2019-08-29] MEDS ORDERED: ALBUTEROL SULFATE HFA 90 MCG/PUFF 8 GM INHALER IH PRN (23:00)
[2019-08-29] MEDS ORDERED: ONDANSETRON HCL 4 MG TABLET PO PRN (23:00)
[2019-08-29] MEDS ORDERED: PETROLATUM,WHITE 28 GM JELLY TP PRN (23:00)
[2019-08-29] MEDS ORDERED: LOPERAMIDE HCL 2 MG CAPSULE PO PRN (23:00)
[2019-08-29] MEDS ORDERED: NICOTINE 14 MG/24 HOUR PATCH TD PRN (23:00)
[2019-08-29] MEDS ORDERED: DOCUSATE SODIUM 100 MG CAPSULE PO PRN (23:00)
[2019-08-29] MEDS ORDERED: ACETAMINOPHEN 325 MG TABLET PO PRN (23:00)
[2019-08-29] MEDS ORDERED: GuaiFENesin/D-METHORPHAN [SUGAR-FREE] 200-20MG/10 ML SYRUP UDCUP PO PRN (23:00)
[2019-08-29 23:22] LABS: GLUCOSE,POINT OF CARE 205 MG/DL (70-110)
[2019-08-30] MEDS ORDERED: HALOPERIDOL 5 MG TABLET PO PRN (00:15)
[2019-08-30] MEDS ORDERED: ZOLPIDEM TARTRATE 10 MG TABLET PO PRN (00:15)
[2019-08-30] MEDS: LORazepam 2 MG TABLET PO PRN (00:58)
[2019-08-30 02:04] VITALS: BP 156/95
[2019-08-30] MEDS: FERROUS SULFATE 325 MG EC TABLET PO SCH (06:57)
[2019-08-30 07:10] LABS: BASOPHILS % (AUTO) 0.9 % (0.0-2.0); EOSINOPHILS % (AUTO) 2.9 % (1.0-6.0); HEMATOCRIT 24.2 % (36-46); HEMOGLOBIN 7.8 g/dL (12.0-16.0); LYMPHOCYTES # (AUTO) 0.9 K/uL (1.0-4.8); LYMPHOCYTES % (AUTO) 15.9 % (22.0-44.0); MEAN CORPUSCULAR HEMOGLOBIN 26.3 pg (26.0-34.0); MEAN CORPUSCULAR HGB CONC 32.2 G/dL (31.0-37.0); MEAN CORPUSCULAR VOLUME 82 fL (80-100); MONOCYTES # (AUTO) 0.5 K/uL (0.1-1.0); MONOCYTES % (AUTO) 8.6 % (2.0-9.0); NEUTROPHILS # (AUTO) 4.2 K/uL (1.8-7.7); NEUTROPHILS % (AUTO) 71.7 % (40.0-70.0); PLATELET COUNT (AUTO) 299 K/uL (150-450); RED BLOOD CELL COUNT(AUTO) 2.96 MIL/uL (4.00-5.20); RED CELL DISTRIBUTION WIDTH 15.2 % (11.5-14.5)
[2019-08-30 08:00] VITALS: BP 157/105
[2019-08-30] MEDS ORDERED: IBUPROFEN 600 MG TABLET PO PRN (08:15)
[2019-08-30] MEDS ORDERED: ACETAMINOPHEN 325 MG TABLET PO PRN (08:15)
[2019-08-30] MEDS ORDERED: BENZOCAINE/MENTHOL LOZENGE MM PRN (08:15)
[2019-08-30] MEDS ORDERED: BACITRACIN 28.4 GM OINTMENT TP PRN (08:15)
[2019-08-30] MEDS ORDERED: CloNIDine HCL 0.1 MG TABLET PO PRN (08:15)
[2019-08-30] MEDS ORDERED: MAGNESIUM HYDROXIDE SUSPENSION 30 ML UDCUP PO PRN (08:15)
[2019-08-30] MEDS ORDERED: MAG HYDROX/AL HYDROX/SIMETH ES 30 ML SUSPENSION UDCUP PO PRN (08:15)
[2019-08-30] MEDS ORDERED: LOPERAMIDE HCL 2 MG CAPSULE PO PRN (08:15)
[2019-08-30] MEDS ORDERED: PETROLATUM,WHITE 28 GM JELLY TP PRN (08:15)
[2019-08-30] MEDS ORDERED: ONDANSETRON HCL 4 MG TABLET PO PRN (08:15)
[2019-08-30] MEDS ORDERED: ALBUTEROL SULFATE HFA 90 MCG/PUFF 8 GM INHALER IH PRN (08:15)
[2019-08-30] MEDS: OMEPRAZOLE 20 MG CAPSULE PO SCH (09:55)
[2019-08-30] MEDS: ROSUVASTATIN CALCIUM 20 MG TABLET PO SCH (09:55)
[2019-08-30] MEDS: METOPROLOL SUCCINATE 25 MG ER TABLET PO SCH (09:55)
[2019-08-30] MEDS: DOCUSATE SODIUM 100 MG CAPSULE PO SCH (09:55)
[2019-08-30] MEDS: LATANOPROST 0.005% 2.5 ML OPHTHALMIC SOLUTION OU SCH (09:55)
[2019-08-30] MEDS: LamoTRIgine 25 MG TABLET PO SCH ×2 (09:55→16:34)
[2019-08-30] MEDS: HydrALAZINE HCL 25 MG TABLET PO SCH ×2 (10:04→16:34)
[2019-08-30 13:54] VITALS: BP 154/94
[2019-08-30] MEDS ORDERED: DEXTROSE 50%-WATER 25 GM/50 ML SYRINGE IVP PRN (14:15)
[2019-08-30] MEDS: BENZTROPINE MESYLATE 1 MG TABLET PO SCH (16:35)
[2019-08-30 16:58] LABS: GLUCOMETER DEV NAME(LOC) 3E.I 2; GLUCOSE,POINT OF CARE 230 MG/DL (70-110)
[2019-08-30 17:00] VITALS: BP 152/93
[2019-08-30] MEDS ORDERED: LamoTRIgine 25 MG TABLET PO SCH (17:00)
[2019-08-30] MEDS: INSULIN LISPRO 100 UNITS/ML SQ PRN ×2 (17:29→20:52)
[2019-08-30] MEDS: OLANZapine 7.5 MG TABLET PO SCH (20:02)
[2019-08-30] MEDS: INSULIN GLARGINE,HUM.REC.ANLOG 100 UNITS/ML SQ SCH (20:51)
[2019-08-30] MEDS ORDERED: INSULIN GLARGINE,HUM.REC.ANLOG 100 UNITS/ML SQ SCH (21:00)
[2019-08-31 00:46] VITALS: BP 149/97
[2019-08-31 05:30] LABS: GLUCOMETER DEV NAME(LOC) 3E.I 2; GLUCOSE,POINT OF CARE 197 MG/DL (70-110)
[2019-08-31] MEDS: FERROUS SULFATE 325 MG EC TABLET PO SCH (06:40)
[2019-08-31] MEDS: INSULIN LISPRO 100 UNITS/ML SQ PRN ×3 (06:46→20:48)
[2019-08-31 07:54] LABS: CHOL/HDL RATIO 4.3 (3.9-5.7)
[2019-08-31 08:00] VITALS: BP 138/84
[2019-08-31] MEDS: BENZTROPINE MESYLATE 1 MG TABLET PO SCH ×2 (08:55→16:52)
[2019-08-31] MEDS: METOPROLOL SUCCINATE 25 MG ER TABLET PO SCH (08:55)
[2019-08-31] MEDS: HydrALAZINE HCL 25 MG TABLET PO SCH ×2 (08:55→17:40)
[2019-08-31] MEDS: OMEPRAZOLE 20 MG CAPSULE PO SCH (08:55)
[2019-08-31] MEDS: DOCUSATE SODIUM 100 MG CAPSULE PO SCH (08:55)
[2019-08-31] MEDS: ROSUVASTATIN CALCIUM 20 MG TABLET PO SCH (08:55)
[2019-08-31] MEDS: LamoTRIgine 25 MG TABLET PO SCH ×2 (08:55→16:52)
[2019-08-31] MEDS: LATANOPROST 0.005% 2.5 ML OPHTHALMIC SOLUTION OU SCH (08:56)
[2019-08-31] MEDS ORDERED: PARoxetine HCL 20 MG TABLET PO SCH (09:00)
[2019-08-31] MEDS: INSULIN GLARGINE,HUM.REC.ANLOG 100 UNITS/ML SQ SCH ×2 (09:05→20:47)
[2019-08-31 11:41] LABS: GLUCOMETER DEV NAME(LOC) 3E.I 2; GLUCOSE,POINT OF CARE 112 MG/DL (70-110)
[2019-08-31 17:18] LABS: GLUCOMETER DEV NAME(LOC) 3E.I 2; GLUCOSE,POINT OF CARE 366 MG/DL (70-110)
[2019-08-31] MEDS: OLANZapine 7.5 MG TABLET PO SCH (20:18)
[2019-08-31 20:42] LABS: GLUCOMETER DEV NAME(LOC) 3E.I 2; GLUCOSE,POINT OF CARE 245 MG/DL (70-110)
[2019-08-31 22:29] VITALS: BP 148/91
[2019-09-01 00:25] VITALS: BP 148/82
[2019-09-01] MEDS: LORazepam 2 MG TABLET PO PRN (01:47)
[2019-09-01 05:56] LABS: GLUCOMETER DEV NAME(LOC) 3E.I 2; GLUCOSE,POINT OF CARE 103 MG/DL (70-110)
[2019-09-01] MEDS: FERROUS SULFATE 325 MG EC TABLET PO SCH ×2 (06:58→07:04)
[2019-09-01] MEDS ORDERED: GLUCAGON,HUMAN RECOMBINANT 1 MG VIAL IM ONE (08:00)
[2019-09-01 08:30] VITALS: BP 121/69
[2019-09-01 09:00] LABS: GLUCOMETER DEV NAME(LOC) 3E.I 2; GLUCOSE,POINT OF CARE 141 MG/DL (70-110)
[2019-09-01 09:00] LABS: GLUCOMETER DEV NAME(LOC) 3E.I 2; GLUCOSE,POINT OF CARE 67 MG/DL (70-110)
[2019-09-01 09:36] VITALS: BP 163/87
[2019-09-01 09:52] LABS: BASOPHILS % (AUTO) 0.1 % (0.0-2.0); EOSINOPHILS % (AUTO) 1.9 % (1.0-6.0); HEMATOCRIT 27.5 % (36-46); HEMOGLOBIN 8.6 g/dL (12.0-16.0); LYMPHOCYTES # (AUTO) 0.7 K/uL (1.0-4.8); LYMPHOCYTES % (AUTO) 6.1 % (22.0-44.0); MEAN CORPUSCULAR HEMOGLOBIN 25.9 pg (26.0-34.0); MEAN CORPUSCULAR HGB CONC 31.2 G/dL (31.0-37.0); MEAN CORPUSCULAR VOLUME 83 fL (80-100); MONOCYTES # (AUTO) 0.5 K/uL (0.1-1.0); MONOCYTES % (AUTO) 4.7 % (2.0-9.0); NEUTROPHILS # (AUTO) 9.7 K/uL (1.8-7.7); PLATELET COUNT (AUTO) 344 K/uL (150-450); RED BLOOD CELL COUNT(AUTO) 3.32 MIL/uL (4.00-5.20); RED CELL DISTRIBUTION WIDTH 15.2 % (11.5-14.5)
[2019-09-01 09:55] LABS: NEUTROPHILS % (AUTO) 87.2 % (40.0-70.0)
[2019-09-01 10:03] LABS: ANION GAP 8 mmol/L (8-16); CALCIUM, TOTAL 8.2 mg/dL (8.8-10.5); CARBON DIOXIDE 24 mmol/L (22-29); CHLORIDE 107 mmol/L (98-107); CREATININE 2.64 mg/dL (0.60-1.30); GLOMERULAR FILTR. RATE CALC 19 mL/min (>60); GLUCOSE,RANDOM 189 mg/dL (70-110); POTASSIUM 3.4 mmol/L (3.5-5.1); SODIUM SERUM 139 mmol/L (136-145); UREA NITROGEN, BLOOD 39 mg/dL (7-18)
[2019-09-01 10:05] LABS: APPEARANCE,URINE CLEAR (CLEAR); BILIRUBIN,URINE NEGATIVE (NEGATIVE); GLUCOSE, URINE (UA) 100 mg/dL (NEGATIVE); KETONES,URINE NEGATIVE (NEGATIVE); LEUKOCYTE ESTERASE ,URINE NEGATIVE (NEGATIVE); NITRATE,URINE NEGATIVE (NEGATIVE); OCCULT BLOOD,URINE SMALL (NEGATIVE); PH,URINE 6.5 (5.0-8.0); PROTEIN,URINE SEE CONFIRM (NEGATIVE); UROBILINOGEN,URINE 0.2 mg/dL (<=1.0)
[2019-09-01 10:05] LABS: LACTIC ACID 1.3 mmol/L (0.4-2.0)
[2019-09-01 10:11] LABS: AMMONIA < 10 umol/L (11-32); TROPONIN I < 0.02 ng/mL (0.00-0.05)
[2019-09-01 10:12] LABS: AMPHET/METH SCREEN,URINE NEGATIVE (NEGATIVE); BARBITURATE SCREEN, URINE NEGATIVE (NEGATIVE); BENZODIAZEPINES SCREEN,URINE NEGATIVE (NEGATIVE); CANNABINOID SCREEN,URINE NEGATIVE (NEGATIVE); COCAINE SCREEN,URINE NEGATIVE (NEGATIVE); METHADONE SCREEN, URINE NEGATIVE (NEGATIVE); OPIATE SCREEN,URINE NEGATIVE (NEGATIVE)
[2019-09-01 10:13] LABS: PHENCYCLIDINE SCREEN,URINE NEGATIVE (NEGATIVE)
[2019-09-01 10:17] LABS: BACTERIA,URINE None Seen /HPF (None Seen); SULFOSALICYLIC ACID,URINE 3+ (Negative); WBC,URINE None Seen /HPF (0-5)
[2019-09-01 10:28] LABS: ALANINE AMINOTRANSFERASE 22 U/L (12-78); ALBUMIN 1.7 g/dL (3.4-5.0); ALKALINE PHOSPHATASE 87 U/L (46-116); ASPARTATE AMINOTRANSFERASE 27 U/L (15-37); FREE T4 (FREE THYROXINE) 1.34 ng/dL (0.76-1.46); THYROID STIMULATING HORMONE 6.36 uIU/mL (0.36-3.74); TOTAL PROTEIN, SERUM 5.1 g/dL (6.4-8.2)
[2019-09-01 10:31] LABS: BILIRUBIN,TOTAL < 0.1 mg/dL (0.1-1.0)
== END 2019-09-01 09:00 | disposition still patient (30) | DRG 885 ==
LOC: EMS 17:31 → 3EI 23:57
PROVIDERS: ADMIT Psychiatry & Neurology Psychiatry; ATTEND Psychiatry & Neurology Psychiatry
DX: F20.0 Paranoid schizophrenia (principal); N18.3 Chronic kidney disease, stage 3 (moderate); E11.22 Type 2 diabetes mellitus with diabetic chronic kidney disease; G47.00 Insomnia, unspecified; H40.9 Unspecified glaucoma; K59.00 Constipation, unspecified; I12.9 Hypertensive chronic kidney disease with stage 1 through stage 4 chronic kidney disease, or unspecified chronic kidney disease
CPT/HCPCS: 70450; 80307; 83605; 84439; 84443; 87040; 87205; 93005; G0480; J1610; J1815; J7030

== ENCOUNTER 2019-09-02 17:45 | Inpatient (IN) | payer MEDICAID ==
[~2019-09-02] VITALS: Ht 152.4 cm; Wt 59.3 kg
[2019-09-02 18:39] VITALS: BP 182/99
[2019-09-02] MEDS: HydrALAZINE HCL 25 MG TABLET PO SCH (19:40)
[2019-09-02 20:09] LABS: GLUCOMETER DEV NAME(LOC) 3E.I 2; GLUCOSE,POINT OF CARE 231 MG/DL (70-110)
[2019-09-02] MEDS ORDERED: DEXTROSE 50%-WATER 25 GM/50 ML SYRINGE IVP PRN (20:15)
[2019-09-02] MEDS ORDERED: HALOPERIDOL 5 MG TABLET PO PRN (21:00)
[2019-09-02] MEDS ORDERED: LORazepam 2 MG TABLET PO PRN (21:00)
[2019-09-02] MEDS: ROSUVASTATIN CALCIUM 20 MG TABLET PO SCH (21:22)
[2019-09-02] MEDS: INSULIN LISPRO 100 UNITS/ML SQ PRN (21:24)
[2019-09-03 05:28] VITALS: BP 160/95
[2019-09-03 05:38] LABS: GLUCOMETER DEV NAME(LOC) 3E.I 2; GLUCOSE,POINT OF CARE 257 MG/DL (70-110)
[2019-09-03] MEDS: INSULIN LISPRO 100 UNITS/ML SQ PRN ×4 (06:50→21:40)
[2019-09-03] MEDS: FERROUS SULFATE 325 MG EC TABLET PO SCH (06:51)
[2019-09-03 07:49] LABS: CHOL/HDL RATIO 4.9 (3.9-5.7)
[2019-09-03] MEDS ORDERED: BENZTROPINE MESYLATE 1 MG TABLET PO SCH (09:00)
[2019-09-03] MEDS ORDERED: LamoTRIgine 25 MG TABLET PO SCH (09:00)
[2019-09-03] MEDS ORDERED: PARoxetine HCL 20 MG TABLET PO SCH (09:00)
[2019-09-03 09:30] VITALS: BP 147/84
[2019-09-03] MEDS: PANTOPRAZOLE SODIUM 40 MG DR TABLET PO SCH (09:32)
[2019-09-03] MEDS: PARoxetine HCL 20 MG TABLET PO SCH (09:32)
[2019-09-03] MEDS: METOPROLOL SUCCINATE 25 MG ER TABLET PO SCH (09:32)
[2019-09-03] MEDS: MULTIVITAMINS WITH MINERALS, THERAPEUTIC TABLET PO SCH (09:32)
[2019-09-03] MEDS: BENZTROPINE MESYLATE 1 MG TABLET PO SCH ×2 (09:33→16:19)
[2019-09-03] MEDS: LamoTRIgine 25 MG TABLET PO SCH ×2 (09:33→16:19)
[2019-09-03] MEDS: HydrALAZINE HCL 25 MG TABLET PO SCH ×2 (09:33→16:19)
[2019-09-03] MEDS: LATANOPROST 0.005% 2.5 ML OPHTHALMIC SOLUTION OU SCH (09:34)
[2019-09-03 11:16] LABS: GLUCOMETER DEV NAME(LOC) 3E.I 2; GLUCOSE,POINT OF CARE 201 MG/DL (70-110)
[2019-09-03 16:28] VITALS: BP 153/91
[2019-09-03 19:43] LABS: GLUCOMETER DEV NAME(LOC) 3E.I 2; GLUCOSE,POINT OF CARE 266 MG/DL (70-110)
[2019-09-03] MEDS ORDERED: OLANZapine 7.5 MG TABLET PO SCH (21:00)
[2019-09-03] MEDS: ROSUVASTATIN CALCIUM 20 MG TABLET PO SCH (21:35)
[2019-09-03] MEDS: OLANZapine 7.5 MG TABLET PO SCH (21:35)
[2019-09-04 04:37] VITALS: BP 154/88
[2019-09-04 05:46] LABS: GLUCOMETER DEV NAME(LOC) 3E.I 2; GLUCOSE,POINT OF CARE 246 MG/DL (70-110)
[2019-09-04] MEDS: INSULIN LISPRO 100 UNITS/ML SQ PRN ×4 (07:02→20:56)
[2019-09-04] MEDS: FERROUS SULFATE 325 MG EC TABLET PO SCH (07:03)
[2019-09-04] MEDS: LATANOPROST 0.005% 2.5 ML OPHTHALMIC SOLUTION OU SCH (09:28)
[2019-09-04] MEDS: LamoTRIgine 25 MG TABLET PO SCH ×2 (09:28→16:04)
[2019-09-04] MEDS: METOPROLOL SUCCINATE 25 MG ER TABLET PO SCH (09:28)
[2019-09-04] MEDS: BENZTROPINE MESYLATE 1 MG TABLET PO SCH ×2 (09:28→16:03)
[2019-09-04] MEDS: PARoxetine HCL 20 MG TABLET PO SCH (09:28)
[2019-09-04] MEDS: HydrALAZINE HCL 25 MG TABLET PO SCH ×2 (09:28→16:03)
[2019-09-04] MEDS: MULTIVITAMINS WITH MINERALS, THERAPEUTIC TABLET PO SCH (09:28)
[2019-09-04] MEDS: PANTOPRAZOLE SODIUM 40 MG DR TABLET PO SCH (09:28)
[2019-09-04 10:27] VITALS: BP 153/91
[2019-09-04 11:21] LABS: GLUCOMETER DEV NAME(LOC) 3E.I 2; GLUCOSE,POINT OF CARE 231 MG/DL (70-110)
[2019-09-04 16:40] VITALS: BP 138/84
[2019-09-04 18:15] LABS: GLUCOMETER DEV NAME(LOC) 3E.I 2; GLUCOSE,POINT OF CARE 317 MG/DL (70-110)
[2019-09-04] MEDS: ACETAMINOPHEN 325 MG TABLET PO PRN (18:18)
[2019-09-04] MEDS: OLANZapine 7.5 MG TABLET PO SCH (20:12)
[2019-09-04] MEDS: ROSUVASTATIN CALCIUM 20 MG TABLET PO SCH (20:12)
[2019-09-04 20:58] LABS: GLUCOMETER DEV NAME(LOC) 3E.I 2; GLUCOSE,POINT OF CARE 242 MG/DL (70-110)
[2019-09-05] MEDS: ZOLPIDEM TARTRATE 10 MG TABLET PO PRN (01:24)
[2019-09-05 02:44] VITALS: BP 158/95
[2019-09-05 05:20] VITALS: BP 141/88
[2019-09-05] MEDS: ACETAMINOPHEN 325 MG TABLET PO PRN (05:24)
[2019-09-05 05:42] LABS: GLUCOMETER DEV NAME(LOC) 3E.I 2; GLUCOSE,POINT OF CARE 272 MG/DL (70-110)
[2019-09-05] MEDS: FERROUS SULFATE 325 MG EC TABLET PO SCH (06:57)
[2019-09-05] MEDS: INSULIN LISPRO 100 UNITS/ML SQ PRN ×4 (07:03→21:06)
[2019-09-05] MEDS: PANTOPRAZOLE SODIUM 40 MG DR TABLET PO SCH (09:38)
[2019-09-05] MEDS: HydrALAZINE HCL 25 MG TABLET PO SCH ×2 (09:38→16:17)
[2019-09-05] MEDS: MULTIVITAMINS WITH MINERALS, THERAPEUTIC TABLET PO SCH (09:38)
[2019-09-05] MEDS: METOPROLOL SUCCINATE 25 MG ER TABLET PO SCH (09:38)
[2019-09-05] MEDS: BENZTROPINE MESYLATE 1 MG TABLET PO SCH ×2 (09:38→16:17)
[2019-09-05] MEDS: LamoTRIgine 25 MG TABLET PO SCH ×2 (09:38→16:17)
[2019-09-05] MEDS: LATANOPROST 0.005% 2.5 ML OPHTHALMIC SOLUTION OU SCH (09:39)
[2019-09-05] MEDS: PARoxetine HCL 20 MG TABLET PO SCH (09:39)
[2019-09-05 10:05] VITALS: BP 133/85
[2019-09-05 11:06] LABS: GLUCOMETER DEV NAME(LOC) 3E.I 2; GLUCOSE,POINT OF CARE 181 MG/DL (70-110)
[2019-09-05 17:01] VITALS: BP 160/97
[2019-09-05] MEDS: OLANZapine 7.5 MG TABLET PO SCH (21:04)
[2019-09-05] MEDS: ROSUVASTATIN CALCIUM 20 MG TABLET PO SCH (21:04)
[2019-09-06] MEDS: ZOLPIDEM TARTRATE 10 MG TABLET PO PRN (00:05)
[2019-09-06 04:26] VITALS: BP 139/81
[2019-09-06 06:00] LABS: GLUCOMETER DEV NAME(LOC) 3E.I 2; GLUCOSE,POINT OF CARE 279 MG/DL (70-110)
[2019-09-06] MEDS: FERROUS SULFATE 325 MG EC TABLET PO SCH (06:59)
[2019-09-06] MEDS: INSULIN LISPRO 100 UNITS/ML SQ PRN ×2 (07:00→12:31)
[2019-09-06] MEDS: BENZTROPINE MESYLATE 1 MG TABLET PO SCH (09:00)
[2019-09-06] MEDS: PARoxetine HCL 20 MG TABLET PO SCH (09:00)
[2019-09-06] MEDS: METOPROLOL SUCCINATE 25 MG ER TABLET PO SCH (09:00)
[2019-09-06] MEDS: PANTOPRAZOLE SODIUM 40 MG DR TABLET PO SCH (09:00)
[2019-09-06] MEDS: MULTIVITAMINS WITH MINERALS, THERAPEUTIC TABLET PO SCH (09:00)
[2019-09-06] MEDS: LamoTRIgine 25 MG TABLET PO SCH (09:00)
[2019-09-06] MEDS: HydrALAZINE HCL 25 MG TABLET PO SCH (09:01)
[2019-09-06] MEDS: LATANOPROST 0.005% 2.5 ML OPHTHALMIC SOLUTION OU SCH (09:02)
[2019-09-06 09:31] VITALS: BP 134/89
[2019-09-06 11:04] LABS: GLUCOMETER DEV NAME(LOC) 3E.I 2; GLUCOSE,POINT OF CARE 201 MG/DL (70-110)
[2019-09-06] MEDS ORDERED: PANT40TA25 PO (11:42)
== END 2019-09-06 14:00 | disposition home or self-care (01) | DRG 885 ==
LOC: 3EI 17:45
PROVIDERS: ADMIT Psychiatry & Neurology Psychiatry; ATTEND Psychiatry & Neurology Psychiatry
DX: F20.0 Paranoid schizophrenia (principal); N18.4 Chronic kidney disease, stage 4 (severe); N17.9 Acute kidney failure, unspecified; E44.0 Moderate protein-calorie malnutrition; E11.649 Type 2 diabetes mellitus with hypoglycemia without coma; H40.9 Unspecified glaucoma; F41.9 Anxiety disorder, unspecified; I12.9 Hypertensive chronic kidney disease with stage 1 through stage 4 chronic kidney disease, or unspecified chronic kidney disease; E11.22 Type 2 diabetes mellitus with diabetic chronic kidney disease; K59.00 Constipation, unspecified; D50.9 Iron deficiency anemia, unspecified; E86.0 Dehydration; E78.5 Hyperlipidemia, unspecified; G47.00 Insomnia, unspecified; Z91.018 Allergy to other foods; Z68.25 Body mass index [BMI] 25.0-25.9, adult
CPT/HCPCS: 87081